=== PATIENT | male | born 1935 | race Caucasian/White ===

== ENCOUNTER 2016-09-30 08:37 | Inpatient (IN) | payer MEDICARE ==
[~2016-09-30] VITALS: Ht 180.3 cm; Wt 87.5 kg
[2016-09-30] VITALS (9 sets, daily range): BP systolic 92–149; BP diastolic 52–76; PULSE 59–64; RESP 14–18; TEMP 97.4–97.9; O2SAT 93–99
[~2016-09-30 08:37] MED LIST: ENAL10TA7 PO; HYDR-2768 PO; HYDR-3580 PO; K-TA10TA5 PO; OMEP20CA5 PO; SIMV20TA PO; WARF3TAB PO; WARF6 PO; Z.0.COMMODE-3:1; Z.0.WALKERFRONT
[2016-09-30] MEDS ORDERED: ENAL10TA PO ×2 (09:25)
[2016-09-30] MEDS ORDERED: POTA10CA PO (09:25)
[2016-09-30] MEDS ORDERED: OMEP20TA PO (09:25)
[2016-09-30] MEDS ORDERED: SIMV20TA PO (09:25)
[2016-09-30] MEDS ORDERED: WARF-60 PO (09:25)
[2016-09-30] MEDS ORDERED: HYDR25TA5 PO (09:25)
[2016-09-30] MEDS ORDERED: HYDR200T3 PO (09:26)
[2016-09-30] MEDS ORDERED: SODIUM CHLOR 0.9% 1000 ML INJ 1,000 ML IV SCH ×2 (09:30→11:50)
[2016-09-30] MEDS ORDERED: SODIUM CHLORIDE 0.9% FLUSH 10 ML FLUSH IV FLUSH PRN ×2 (09:30)
[2016-09-30] MEDS ORDERED: HEPARIN-NS/PF INJ 500 ML ONE (10:18)
[2016-09-30 10:21] LABS: INTERNATIONAL NORMALIZED RATIO 1.2 RATIO; PROTHROMBIN TIME - PATIENT 13.4 SEC (9.8-11.6)
[2016-09-30] MEDS ORDERED: MIDAZOLAM HCL 2 MG/2 ML VIAL ONE ×2 (10:21→11:30)
[2016-09-30] MEDS ORDERED: IOHEXOL 350 MG/ML 100 ML BTL (for Cath Lab) OTHER ONE (10:33)
[2016-09-30] MEDS ORDERED: IOHEXOL 350 MG/ML 50 ML BTL (for Cath Lab) OTHER ONE (10:33)
[2016-09-30] MEDS ORDERED: HEPARIN SODIUM - IV 10,000 UNITS/10 ML VIAL ONE (11:07)
[2016-09-30] MEDS ORDERED: CLOPIDOGREL 300 MG TAB ONE (11:52)
[2016-09-30] MEDS ORDERED: CLOP75TA PO (11:55)
--- NOTE | 2016-09-30 11:56 | CATHPROC ---
[facility] HIS Report Study Information Study Number Admission Scheduled Start Study Start [id number] Sep 30 2016 8:37AM 09/30/2016 Sep 30 2016 10:13AM [place] Service Cath Endovascular Study Admit Source Facility Department Other [facility] - [facility] Physician and Clinical Staff Initial Nirav Starr Business Associate Kirt Rowley RN Other cathlab, cathlab Recorder Quinn Vazquez RCIS(BS) Scrub Hosterman, Durga,RT(R) Procedures Performed Procedure Location (Site) Vessel Name Angiogram (manual) Fem L. Com (L7) Femoral Art Angiogram (manual) Fem R. Com (R7) Femoral Art Angiogram (manual) Iliac R. Com. (R4) [place] Art. Angiogram (manual) Popliteal L (L10) Popliteal Angiogram (manual) Popliteal R (R10) Popliteal Angiogram (manual) SFA (left) Femoral Art Angiogram (manual) SFA (right) Femoral Art Angiogram (manual) Tib, Ant. (left) Popliteal Angiogram (manual) Tib, Ant. (right) Popliteal Angiogram LV Abd Aorta (A3) Aorta DOCTOR OF MEDICINE SFA (right) Femoral Art DOCTOR OF MEDICINE Tib, Ant. (right) Popliteal Wire insertion Fem Art (right) Femoral Art Equipment Time Silicator Description Size Mfg Part Number Used/Scraped DBP- CARDIOVASCULAR CATHETER, STEALTH SOLID 11:26 [id number] Used SYSTEMS INC. 2.0MM *[id number] CARDIOVASCULAR [id number] 11:16 WIRE, FIRM (VIPER) 335 Used SYSTEMS INC. *[id number] WIRE, GUIDE APPROACH HYDRO [id number] 11:08 COOK/TATI 300CM Used ST *[id number] 532-523 10:28 CORDIS/ TATI RIM SUPER TORQUE CATHETER FR 5 Used *[id number] *[id number] BALLOON, ADMIRAL EXTREME 5 [id number] 11:33 [employer] 130CM Used X 40 130CM *[id number] BALLOON, ADMIRAL IN.PACT 6 X 11:36 [employer] 130CM [id number] Used 40 130CM BALLOON, AMPHIRION DEEP 4 X [id number] 11:23 [employer] 150CM Used 150 150CM *[id number] CATHETER, FR5 TRAILBLAZER [id number] 11:08 [employer] 135CM Used .035 *[id number] 10:28 MALLINCKRODT SYRINGE, ANGIOMAT 150ML 150ML [id number] Used [id number] 10:28 MEDLINE IND[employer]ES PACK, CCL CUSTOM * Used *[id number] 10:28 MEDLINE PACER PEN, SKIN DUAL W/ RULER * Used *[id number] 11:08 [employer] MEDICAL 30 RAFA INDEFLATOR Used *[id number] 11:45 [employer] SHEATH, FR6.5 PRELUDE 11CM FR 6.5 038ACT Used *[id number] [id number] 10:28 [employer] WIRE, EXCHANGE 260CM 3MMJ 260CM Used *[id number] 10:28 NAMIC MANIFOLD, 4 PORT * Used *[id number] [id number] 10:28 NAMIC TUBING, HIGH PRESSURE 48" 48" Used *[id number] 10:28 NYCOMED OMNIPAQUE, 300 MG, 150ML 150ML [id number] Used 11:01 NYCOMED OMNIPAQUE, 300 MG, 150ML 150ML [id number] Used [id number] 10:28 [facility] BLANKET,WARM AIR CCL * Used *[id number] 10:28 TERUMO MEDICAL SHEATH, FR5 TERUMO (10CM) FR 5 [id number] Used SHEATH, FR6 PINNACLE [id number] 11:08 TERUMO MEDICAL/TATI FR 6 Used DESTINATION 45CM *[id number] WIRE, ANGLE GLIDE STIFF .035 [id number] 10:28 TERUMO MEDICAL/TATI 260CM Used 260CM *[id number] Equipment Model, Serial, Lot Number and Expiration Data Description Model Number Serial Number Lot Number Expiration Date CATHETER, FR5 TRAILBLAZER .035 [id number] 07-19-2019 CATHETER, STEALTH SOLID 2.0MM [id number] 05-24-2018 WIRE, FIRM (VIPER) 335 [id number] 06-24-2018 WIRE, GUIDE APPROACH HYDRO [id number] 01-31-2019 ST History: Allergies Allergy Reaction Adhesives Rash Ciprofloxacin DRY MOUTH Oxycodone Confusion History: Other Current Smoker No Labs Hgb (g/dl) Hct (%) RBC (MIL/MM3) WBC (l/cumm) Platelets (thousands) 11.60-17.00 35.00-51.00 4.00-5.90 4.00-11.00 150.00-450.00 13.3 40.7 4.2 5.1 125 Glucose (mg/dl) BUN (mg/dl) Creatinine (mg/dl) BUN:Creatinine (1:x) 74.00-106.00 7.00-18.00 0.50-1.30 10.00-20.00 88 31 1.3 23.8 Na (meq/l) K (meq/l) Cl (meq/l) CO2 (mmol/L) Ca (mg/dl) 136.00-145.00 3.50-5.10 98.00-107.00 21.00-32.00 8.50-10.10 142 4.5 107 19 8.7 INR (PTT:PT) 0.90-1.10 1.2 CPK-MB (ng/ML) 0.50-3.60 Not Drawn Medication Medication Total Dose (Bolus/Oral) Medication Total Dosage/Unit 1% XYLOCAINE 20 mL FENTANYL 25 mcg HEPARIN 5000 units NTG (IC) 200 mcg PLAVIX 600 mg VERSED 2 mg Medications (Bolus/Oral) Medication Time Given Dosage/Unit Administered By Reason VERSED 09/30/2016 10:48:42 AM 1 mg Kirt Rowley Patient arrived on 1 mg VERSED given by Kirt Rowley RN in Left Antecubital via Peripheral IV. FENTANYL 09/30/2016 10:48:52 AM 25 mcg Kirt Rowley Patient arrived on 25 mcg FENTANYL given by Kirt Rowley RN in Left Antecubital via Peripheral IV. Ordered by Nirav Medrano. 1% XYLOCAINE 09/30/2016 10:53:49 AM 20 mL Nirav Medrano 20 mL 1% XYLOCAINE given in lab by Nirav Medrano in Left Groin via Subcutaneous. HEPARIN 09/30/2016 11:13:07 AM 5000 units Kirt Rowley 5000 units HEPARIN given in lab by Kirt Rowley RN in Left Antecubital via Peripheral IV. NTG (IC) 09/30/2016 11:30:46 AM 100 mcg Nirav Medrano 100 mcg NTG (IC) given in lab by Nirav Medrano in Left Groin via Intra-arterial. VERSED 09/30/2016 11:31:20 AM 1 mg Kirt Rowley Patient arrived on 1 mg VERSED given by Kirt Rowley, RN in Left Antecubital via Peripheral IV. NTG (IC) 09/30/2016 11:40:46 AM 100 mcg Nirav Medrano 100 mcg NTG (IC) given in lab by Nirav Medrano in Left Groin via Intra-arterial. PLAVIX 09/30/2016 11:56:02 AM 600 mg Kirt Rowley 600 mg PLAVIX given in lab by Kirt Rowley, RN via Oral. Medication (Drip) Medication Time Given Dosage/Unit Concentration/Unit Diluent (ml) Solutio n IV Solutions 09/30/2016 10:13:18 AM 0 mL (IV) 500 NaCl .9 Patient arrived on IV Solutions given by alyssa shah in Left Antecubital via Peripheral IV. Pump /Drip Flow = 20 ml/hr using NaCl .9. Ordered by Nirav Medrano. Initial Case Assessment Cardiovascular HR Rhythm NIBP Chest Pain 67 sinus 155/75 0 Edema Present Skin color Skin None Normal Warm Dry Circulatory - Right Pulses Dorsalis Pedis Femoral d 2 Scale (0,1,2,3,4,d) Circulatory - Left Pulses Dorsalis Pedis Femoral d 2 Scale (0,1,2,3,4,d) Neurological State Oriented to time-place- Alert Moves all extremities person Respiration - General Respiration Rate SpO2 (%) (B/min) 15 99 Final Case Assessment Cardiovascular HR Rhythm NIBP Chest Pain 60 sinus 123/71 0 Edema Present Skin color Skin None Normal Warm Dry Circulatory - Right Pulses Dorsalis Pedis Femoral d 2 Scale (0,1,2,3,4,d) Circulatory - Left Pulses Dorsalis Pedis Femoral d 2 Scale (0,1,2,3,4,d) Neurological State Oriented to time-place- Alert Moves all extremities person Respiration - General Respiration Rate SpO2 (%) (B/min) 15 98 Chronological Log Time Study Chronological Log 10:12:58 Patient arrived via Bed. 10:12:59 Patient Name, D.O.B, / Armband Verified By R.N. 10:13:00 Consent signed by the physician and the patient and verified by the [facility] staff. 10:13:00 Pre-op and post- op instructions given; patient acknowledges understanding of instructions. 10:13:01 Verbal Stimulation=2 Physical Stimulation=2 Airway=2 Respiration=2 TOTAL=8. (0=absent, 1=li mited, 2=present) 10:13:04 Presedation assessment performed by [facility] RN. 10:13:05 Immediate Presedation assesment performed by physician. 10:13:07 Patient has been NPO for More than 6Hrs. 10:13:08 Skin Breakdown- none per patient 10:13:14 Patient Warmer Placed on the Table. 10:13:16 Tegan Prominences Protected 10:13:17 A # 20 IV was noted in the Antecubital (left). Grade = 0 Patient arrived on IV Solutions given by cathlab, cathlab in Left Antecubital via Peripheral IV . Pump/Drip Flow = 20 10:13:18 ml/hr using NaCl .9. Ordered by Nirav Medrano. 10:13:18 History and physical on the chart or being dictated. Vitals capture started with the following parameters, Patient=Adult, Interval=5 min, Initial Pr soyvef=307 mmHg, 10:19:15 Deflation Rate=5 mmHg 10:19:53 FH=774 bpm, RZMQ=886/75 mmhg, SpO2=99.0 %, Resp=12 B/min Assessment: Initial Case, HR=67 BPM, Rhythm=sinus, STLS=971/75 mmhg, Chest Pain=0, Edema=None, Color=Normal, Skin = Warm, Dry Right Pulses: Clyde Ped=d, Femoral=2 10:22:32 Left Pulses: Clyde Ped=d, Femoral=2 Neurological: State=Alert, Ox3, [place] Respiration: Resp=15 B/min, SpO2=99 % 10:23:08 Reference ECG taken 10:24:54 HR=60 bpm, YKKX=417/76 mmhg, SpO2=99.0 %, Resp=13 B/min, Pain=0, Sonja=10, Duckworth=2 10:29:53 HR=60 bpm, VQXA=321/73 mmhg, SpO2=98.0 %, Resp=16 B/min, Pain=0, Sonja=10, Duckworth=2 10:30:19 Bilateral groins prepped with 2% chlorhexidine, and with a 3 min. waiting time. 10:34:50 FF=477 bpm, XKUD=804/73 mmhg, SpO2=98.0 %, Resp=18 B/min, Pain=0, Sonja=10, Duckworth=2 10:38:47 MD paged 10:39:10 MD responded 10:39:56 XN=681 bpm, WTUO=315/66 mmhg, SzK7=580.0 %, Resp=15 B/min, Pain=0, Sonja=10, Duckworth=2 10:41:46 Pressure channel 1 zeroed. 10:44:55 HR=60 bpm, SMMN=708/73 mmhg, SpO2=98.0 %, Resp=28 B/min 10:47:02 MD arrived. 10:48:06 Contrast Scanned 10:48:06 Immediate Presedation assesment performed by physician. 10:48:42 Patient arrived on 1 mg VERSED given by Kirt Rowley RN in Left Antecubital via Peripher al IV. Patient arrived on 25 mcg FENTANYL given by Kirt Rowley RN in Left Antecubital via Peripher al IV. Ordered by Mitchell, 10:48:52 Nirav. 10:49:54 HR=56 bpm, NPNN=889/68 mmhg, SpO2=99.0 %, Resp=18 B/min, Pain=0, Sonja=10, Duckworth=2 Time Out. Correct patient, correct procedure,correct physician, ,power injector loaded with con trast with surgical team 10:52:45 present. Time Out Concurred by , individual staff in procedure 10:53:22 Case Start 10:53:23 Verbal Stimulation=2 Physical Stimulation=2 Airway=2 Respiration=2 TOTAL=8. (0=absent, 1=li mited, 2=present) 10:53:49 20 mL 1% XYLOCAINE given in lab by Nirav Medrano in Left Groin via Subcutaneous. 10:54:51 HR=89 bpm, SDIF=097/72 mmhg, SpO2=94.0 %, Resp=13 B/min, Pain=0, Sonja=10, Duckworth=2 10:59:56 HR=59 bpm, GIYR=610/69 mmhg, SpO2=99.0 %, Resp=12 B/min, Pain=0, Sonja=10, Duckworth=2 11:00:24 Access site was Left Femoral Artery. 11:00:34 A SHEATH, FR5 TERUMO (10CM) FR 5 was advanced into the Fem Art (left) using the Percutaneou s technique. A PIGTAIL ANG. INFINITI CATHETER FR 5 was advanced over a wire. OMNIPAQUE, 300 MG, 150ML 150ML was used 11:01:16 for injections. 11:01:34 The Abd Aorta (A3) was injected at 12 cc/sec for a total of 24. OMNIPAQUE, 300 MG, 150ML 15 0ML used. After removing the current catheter a RIM SUPER TORQUE CATHETER FR 5 was advanced over a WIRE, EXCHANGE 11:04:32 260CM 3MMJ 260CM. 11:04:53 HR=59 bpm, NBGF=794/67 mmhg, SpO2=97.0 %, Resp=21 B/min, Pain=0, Sonja=10, Duckworth=2 11:05:28 Iliac R. Com. (R4) angiogram, manually injected. 11:06:38 Fem R. Com (R7) angiogram, manually injected. 11:06:50 SFA (right) angiogram, manually injected. 11:07:03 Popliteal R (R10) angiogram, manually injected. 11:08:53 Tib, Ant. (right) angiogram, manually injected. 11:09:56 HR=97 bpm, UKTF=903/56 mmhg, SpO2=97.0 %, Resp=15 B/min, Pain=0, Sonja=10, Duckworth=2 11:10:46 A WIRE, ANGLE GLIDE STIFF .035 260CM 260CM was inserted via Fem Art (right). 11:11:32 Catheter was removed w/o difficulty A SHEATH, FR6 PINNACLE DESTINATION 45CM FR 6 was exchanged in the Fem Art (left). This was nece ssary in order 11:11:44 to accomodate a larger catheter. 11:13:07 5000 units HEPARIN given in lab by Kirt Rowley, MORIAH in Left Antecubital via Peripheral IV . 11:14:51 HR=60 bpm, HEBQ=575/66 mmhg, SpO2=98.0 %, Resp=16 B/min, Pain=0, Sonja=10, Duckworth=2 A CATHETER, FR5 TRAILBLAZER .035 135CM was advanced over a wire. OMNIPAQUE, 300 MG, 150ML 150ML was 11:16:13 used for injections. 11:19:54 HR=60 bpm, FBOT=837/68 mmhg, SpO2=98.0 %, Resp=16 B/min, Pain=0, Sonja=10, Duckworth=2 11:21:09 Activated Clotting Time Drawn 11:23:37 Catheter was removed w/o difficulty A BALLOON, AMPHIRION DEEP 4 X 150 150CM 150CM was inserted over WIRE, GUIDE APPROACH HYDRO ST 3 00CM 11:23:39 via the Tib, Ant. (right). 11:24:21 In the Tib, Ant. (right) a BALLOON, AMPHIRION DEEP 4 X 150 150CM 150CM was inflated to 2 at ms for 60 seconds. 11:24:57 HR=68 bpm, AMNM=383/67 mmhg, SpO2=98.0 %, Resp=15 B/min, Pain=0, Sonja=10, Duckworth=2 11:25:35 The previous wire was exchanged for a WIRE, FIRM (MediastayER) 335. 11:26:31 ACT (Normal Range 90-180) = 225 11:27:49 An CATHETER, [employer] SOLID 2.0MM catheter was inserted into the SFA (right). 11:30:00 JN=234 bpm, JGWY=236/64 mmhg, SpO2=98.0 %, Resp=15 B/min, Pain=0, Sonja=10, Duckworth=2 11:30:[address] pass, 30 seconds, 90k rpm 11:30:46 100 mcg NTG (IC) given in lab by Nirav Medrano in Left Groin via Intra-arterial. 11:31:20 Patient arrived on 1 mg VERSED given by Kirt Rowley, RN in Left Antecubital via Peripher al IV. 11:31:22 2nd pass, 20 sec, 120k rpm 11:31:44 3rd pass, 20 sec, 120k rpm 11:32:22 Catheter was removed w/o difficulty 11:32:36 A BALLOON, ADMIRAL EXTREME 5 X 40 130CM 130CM was inserted over WIRE, FIRM (VIPER) 335 via the SFA (right). 11:33:21 In the SFA (right) a BALLOON, ADMIRAL EXTREME 5 X 40 130CM 130CM was inflated to 4 atms for 30 seconds. 11:34:05 In the SFA (right) a BALLOON, ADMIRAL EXTREME 5 X 40 130CM 130CM was inflated to 4 atms for 30 seconds. 11:34:55 HR=68 bpm, BZNM=027/73 mmhg, SpO2=97.0 %, Resp=30 B/min, Pain=0, Sonja=10, Duckworth=2 11:35:32 Balloon Removed. 11:36:18 A BALLOON, ADMIRAL IN.PACT 6 X 40 130CM 130CM was inserted over WIRE, FIRM (VIPER) 335 via the SFA (right). 11:37:01 In the SFA (right) a BALLOON, ADMIRAL IN.PACT 6 X 40 130CM 130CM was inflated to 4 atms for 180 seconds. 11:39:56 HR=60 bpm, AXMN=075/71 mmhg, SpO2=98.0 %, Resp=15 B/min, Pain=0, Sonja=10, Duckworth=2 11:40:16 Balloon Removed. 11:40:46 100 mcg NTG (IC) given in lab by Nirav Medrano in Left Groin via Intra-arterial. 11:42:00 Balloon Removed. 11:42:00 Wire removed 11:42:11 SFA (right) angiogram, manually injected. 11:42:15 Popliteal R (R10) angiogram, manually injected. 11:42:21 Tib, Ant. (right) angiogram, manually injected. 11:43:32 Fem L. Com (L7) angiogram, manually injected. 11:43:43 SFA (left) angiogram, manually injected. 11:43:48 Popliteal L (L10) angiogram, manually injected. 11:43:52 Tib, Ant. (left) angiogram, manually injected. A SHEATH, FR6.5 PRELUDE 11CM FR 6.5 was exchanged in the Fem Art (right). This was necessary i n order to 11:44:26 minimize site leakage. 11:44:59 HR=62 bpm, KAOV=147/71 mmhg, SpO2=98.0 %, Resp=16 B/min, Pain=0, Sonja=10, Duckworth=2 11:45:11 Case End Assessment: Final Case, HR=60 BPM, Rhythm=sinus, GLDC=635/71 mmhg, Chest Pain=0, Edema=None, Color=Normal, Skin = Warm, Dry Right Pulses: Clyde Ped=d, Femoral=2 11:45:15 Left Pulses: Clyde Ped=d, Femoral=2 Neurological: State=Alert, Ox3, [place] Respiration: Resp=15 B/min, SpO2=98 % 11:45:30 Catheter(s) removed without difficulty 11:45:32 In the Fem Art (left) the SHEATH, FR6.5 PRELUDE 11CM FR 6.[address] by Nirav Medrano. 11:45:41 Sterile dressing applied to site 11:45:42 No case complications noted. 11:45:43 Cine recording checked. 11:45:44 Holding Area notified of successful intervention. 11:45:45 Bedside Report will be given. 11:45:46 Implantable Device card placed in patient's chart. 11:45:48 Contrast Scanned 11:45:50 Verbal Stimulation=2 Physical Stimulation=2 Airway=2 Respiration=2 TOTAL=8. (0=absent, 1=l imited, 2=present) 11:49:56 HR=60 bpm, YMOF=165/70 mmhg, SpO2=98.0 %, Resp=14 B/min, Pain=0, Sonja=10, Duckworth=2 11:56:02 600 mg PLAVIX given in lab by Kirt Rowley, MORIAH via Oral. End Study - Contrast Media Used In Study Contrast Total Opened (mL) Total Used (mL) Total Wasted (mL) Omnipaque 150 150 0 End Study - Maximum Contrast Load Max Contrast Load (mL) 325.3 End Study - Radiation Exposure Fluoro Time (minutes) 10.3 End Study - Patient Disposition Complications Transferred To Interventional Outcome No [facility] successful
[2016-09-30] MEDS ORDERED: SODIUM CHLOR 0.9% 250 ML INJ 250 ML IV PRN (12:00)
[2016-09-30] MEDS ORDERED: ACETAMINOPHEN 325 MG TAB PO PRN (12:00)
[2016-09-30] MEDS ORDERED: BACITRACIN OINT 0.9 GM PKT TOP ONE (12:00)
[2016-09-30] MEDS ORDERED: ATROPINE SULFATE 1 MG/ML VIAL IV PRN (12:00)
[2016-09-30] MEDS ORDERED: ONDANSETRON HCL 4 MG/2 ML VIAL IV PRN (12:00)
[2016-09-30] MEDS ORDERED: cloNIDine HCL 0.1 MG TAB PO PRN (12:00)
[2016-09-30] MEDS ORDERED: LIDOCAINE HCL 1% 50 ML VIAL INFIL PRN (12:00)
[2016-09-30] MEDS ORDERED: METOCLOPRAMIDE HCL 10 MG/2 ML VIAL IV PRN (12:00)
[2016-09-30] MEDS ORDERED: MISC INFORMATION XX ONE (12:00)
[2016-09-30] MEDS ORDERED: LORazepam 2 MG/ML VIAL IV PRN (12:00)
[2016-09-30] MEDS ORDERED: hydrALAZINE HCL 20 MG/ML VIAL IV PUSH PRN (12:00)
[2016-09-30] MEDS ORDERED: TEMAZEPAM 15 MG CAP PO PRN (12:00)
--- NOTE | 2016-09-30 12:55 | MA ---
cc: SADIAIJEOMABRITTNI DATE: 09/30/2016 PROCEDURE PERFORMED 1. Fluoroscopy with interpretation. 2. Descending aortography. 3. Bilateral lower extremity peripheral angiography with first, second, third order visualization and interpretation. 4. Orbital rotational atherectomy and balloon angioplasty with drug-coated balloon in the left superficial femoral artery. 5. Orbital rotational atherectomy and balloon angioplasty with drug-coated balloon of the right superficial femoral artery. 6. Percutaneous transluminal angioplasty of the right anterior tibial artery. METHOD The risks, benefits and alternatives were discussed with the patient. The patient understood and consented to the procedure. The patient was brought into the catheterization lab and placed on the catheterization table. The left groin was prepped and draped in the usual sterile fashion. The left groin was anesthetized with 2% lidocaine. The left common femoral artery was cannulated. A 5-Macedonian, 11 cm sheath was placed without difficulty. DESCENDING AORTOGRAPHY Descending aortography is performed in an anteroposterior view using a 24 cc contrast injection with good opacification. Descending aortography revealed mild infrarenal descending aortic atherosclerosis. Bilateral renal arteries are widely patent with mild calcium present. PERIPHERAL ANGIOGRAPHY 1. 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 The right internal iliac artery has mild calcium present. The right external iliac artery has minor luminal irregularities. The right common femoral artery although calcified has only minor luminal irregularities. The right superficial femoral artery has a 95% stenosis in the mid to distal segment. The profunda artery is widely patent. The popliteal artery is widely patent. The posterior tibial and peroneal vessels are occluded. The anterior tibial has 80% diffuse stenosis in the proximal segment, 80% tubular stenosis distal by the ankle. The dorsalis pedis is patent at the level of the foot. The posterior tibial is not well-visualized. 2. 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 The left external and internal iliac arteries have minor luminal irregularities. The left common femoral has mild to moderate calcific disease. The left profunda artery is widely patent. The left superficial femoral has mild to moderate diffuse disease through its midsegment. There appears to be a 70% stenosis in the mid to distal segment. The left popliteal artery is widely patent. The anterior tibial is occluded but has some collateralization in the proximal segment. The posterior tibial peroneal trunk has an 80% stenosis. The peroneal vessel is patent. The posterior tibial is collateralized distally. PERIPHERAL INTERVENTION A 5-Macedonian catheter is selectively engaged in the right common iliac artery. A 0.035 inch, 260 cm Stiff angle Glidewire is navigated up-and-over the arch into the right superficial femoral artery. A 6-Macedonian, 45 cm Terumo Destination [place] sheath was advanced up-and-over the arch. A 0.014 inch, [address] wire was navigated carefully down to the distal anterior tibial vessel. A 4.0 x 100 mm Medtronic balloon was then deployed gently in the right anterior tibial vessel to 4 atmospheres. Repeat angiography showed no residual stenosis in the proximal segment. The wire was exchanged for a 0.014 inch, 335 cm Askablogrer wire. A 2.0 mm CSI atherectomy catheter was then prepped. Orbital rotational atherectomy was performed on three sequential passes through the right superficial femoral artery midsegment. A 5.0 x 40 mm Medtronic balloon was then predilated in the midsegment of the right superficial femoral artery. A 6.0 x 40 mm drug-coated balloon was then deployed for prolonged inflation in the mid right superficial femoral artery. Repeat angiography showed no residual stenosis, JH-III flow. CONCLUSIONS 1. Severe left superficial femoral stenosis. 2. Chronically occluded bilateral posterior tibial arteries. 3. Chronically occluded left peroneal and left anterior tibial arteries. 4. Severe posterior tibial-peroneal trunk stenosis. 5. Moderate to severe right superficial femoral artery mid stenosis. 6. Successful orbital rotational atherectomy and balloon angioplasty with drug-coated balloon of the right mid superficial femoral artery. 7. Moderate to severe stenosis of the left mid superficial femoral artery. 8. Successful balloon angioplasty of the right anterior tibial vessel. PLAN Will see how this translates to symptomatic improvement. The patient does have at least moderate to severe left superficial femoral artery and severe infrapopliteal disease on the left. We may consider staged intervention if he has significant improvement with the right side. We will resume his Coumadin therapy. MD JULITO Lomeli/MIRANDA /12:03 PM /12:41 PM
[2016-09-30] MEDS: MORPHINE SULFATE 4 MG/ML INJ IV PUSH PRN (15:09)
[2016-10-01] VITALS (21 sets, daily range): BP systolic 69–169; BP diastolic 38–68; PULSE 58–76; RESP 18–20; TEMP 98–98.2; O2SAT 95–98
[2016-10-01] MEDS: MORPHINE SULFATE 4 MG/ML INJ IV PUSH PRN (01:55)
[2016-10-01 03:26] LABS: AUTOMATED NEUTROPHIL # 6.9 TH/MM3 (1.8-7.7); BASOPHIL % 0.3 % (0.0-2.0); EOSINOPHIL % 0.1 % (0.0-4.0); HEMATOCRIT 29.6 % (39.0-51.0); HEMO FLAGS DIFF FINAL; LYMPHOCYTE # 0.9 TH/MM3 (1.0-4.8); MEAN CELL VOLUME 94.8 FL (80.0-100.0); MEAN CORPUSCULAR HEMOGLOBIN 32.4 PG (27.0-34.0); MEAN CORPUSCULAR HGB CONC 34.1 % (32.0-36.0); MONO % 6.3 % (0.0-8.0); NEUT % 82.3 % (16.0-70.0); PLATELET COUNT 132 TH/MM3 (150-450); RED BLOOD COUNT 3.13 MIL/MM3 (4.50-5.90); RED CELL DISTRIBUTION WIDTH 13.2 % (11.6-17.2); WHITE BLOOD COUNT 8.4 TH/MM3 (4.0-11.0)
[2016-10-01] MEDS ORDERED: PHENYLEPHRINE 40 MG/D5W 496 ML ADMIX IV SCH ×2 (03:30)
[2016-10-01] MEDS ORDERED: TERBUTALINE INJ 1 MG/ML AMP SQ PRN (03:30)
[2016-10-01] MEDS ORDERED: EPINEPHrine HCL (1:10,000) 1 MG/10 ML SYRINGE ONE (03:33)
[2016-10-01] MEDS ORDERED: ATROPINE SULFATE 1 MG/10 ML SYRINGE ONE (03:33)
[2016-10-01] MEDS ORDERED: MAGNESIUM HYDROXIDE SUSP 30 ML CUP PO PRN ×2 (04:30→19:15)
[2016-10-01] MEDS ORDERED: MORPHINE SULFATE 8 MG/ML INJ IV PUSH PRN (04:30)
[2016-10-01] MEDS ORDERED: ACETAMINOPHEN 325 MG TAB PO PRN ×2 (04:30→19:15)
[2016-10-01] MEDS ORDERED: SENNOSIDES 8.6 MG TAB PO PRN (04:30)
[2016-10-01] MEDS ORDERED: CHLORHEXIDINE GLUCONATE 2 % 1 PACK (2 CLOTHS) TOP PRN (04:30)
[2016-10-01] MEDS ORDERED: LACTULOSE SYRUP 20 GM/30 ML CUP PO PRN (04:30)
[2016-10-01] MEDS ORDERED: ONDANSETRON HCL 4 MG/2 ML VIAL IV PRN (04:30)
[2016-10-01] MEDS ORDERED: MISCELLANEOUS NURSING INFORMATION XX SCH (04:30)
[2016-10-01] MEDS ORDERED: BISACODYL 10 MG SUPP RECTAL PRN (04:30)
--- NOTE | 2016-10-01 04:42 | RADRPT ---
EXAM DATE/TIME: 10/01/2016 03:41 [place] COMPARISON: No previous studies available for comparison. INDICATIONS : Left lower quadrant pain. Evaluate for retroperitoneal bleed. Angioplasty done earlier today. ORAL CONTRAST: No oral contrast ingested. RADIATION DOSE: 10.29 CTDIvol (mGy) MEDICAL HISTORY : Gastroesophageal reflux disease. Hypertension. SURGICAL HISTORY : Pacemaker. Inguinal hernia repair.Right and left hip surgery. ENCOUNTER: Initial ACUITY: 1 day PAIN SCALE: 9/10 LOCATION: Left lower quadrant TECHNIQUE: Volumetric scanning of the abdomen and pelvis was performed. Using automated exposure control and ad justment of the mA and/or kV according to patient size, radiation dose was kept as low as reasonably achievable to obtain optimal diagnostic quality images. DICOM format image data is available electro nically for review and comparison. FINDINGS: LOWER LUNGS: Bibasilar atelectatic changes. LIVER: Homogeneous density without lesion. There is no dilation of the biliary tree. No calcified gallston es. SPLEEN: Normal size without lesion. PANCREAS: Within normal limits. KIDNEYS: Bilateral renal cortical cysts, the largest on the left measuring 9 cm in diameter. The left kidney i s displaced slightly anteriorly due to the retroperitoneal hemorrhage. ADRENAL GLANDS: Within normal limits. VASCULAR: There is no aortic aneurysm. BOWEL/MESENTERY: The stomach, small bowel, and colon demonstrate no acute abnormality. There is no free intraperitone al air or fluid. ABDOMINAL WALL: Within normal limits. RETROPERITONEUM: As suspected clinically, there is a large left-sided retroperitoneal hemorrhage measuring 7.7 x 8.1 x 13.9 cm. BLADDER: No wall thickening or mass. REPRODUCTIVE: Within normal limits. INGUINAL: There is no lymphadenopathy or hernia. MUSCULOSKELETAL: Degenerative spurring of the thoracolumbar spine. Bilateral total hip arthroplasties. CONCLUSION: 1. Large left-sided retroperitoneal hemorrhage measuring 7.7 x 8.1 x 13.9 cm in diameter. This extend s into the left retroperitoneal space and slightly displaces the left kidney anteriorly. 2. Bilateral renal cortical cysts, the largest on the left measuring 9 cm in diameter. Demetrius Okeefe MD on October 01, 2016 at 4:32 Board Certified Radiologist. This report was verified electronically.
[2016-10-01 06:00] LABS: ANION GAP 7 MEQ/L (5-15); AST (GOT) 12 U/L (15-37); BICARBONATE 23.1 MEQ/L (21.0-32.0); BLOOD UREA NITROGEN 31 MG/DL (7-18); CHLORIDE 113 MEQ/L (98-107); GLOMERULAR FILTRATION RATE 45 ML/MIN (>89); POTASSIUM 5.3 MEQ/L (3.5-5.1); SODIUM (NA) 143 MEQ/L (136-145)
[2016-10-01 06:01] LABS: ALT (GPT) 13 U/L (12-78)
[2016-10-01 06:03] LABS: ALKALINE PHOSPHATASE 64 U/L (45-117); APTT (PATIENT) 27.3 SEC (24.3-30.1); INTERNATIONAL NORMALIZED RATIO 1.2 RATIO; PROTHROMBIN TIME - PATIENT 13.1 SEC (9.8-11.6); TOTAL BILIRUBIN ADULT 0.8 MG/DL (0.2-1.0)
--- NOTE | 2016-10-01 06:04 | PD.CONS ---
[facility] Service Critical Care Medicine Consult Requested By Cardiology Service Reason for Consult Hypovolemic Shock Primary Care Physician Matthew Flores M.D. History of Present Illness 81 y/o man s/p extensive lower extremity peripheral vascular procedures developed worsening hypotension requiring crystalloid bolus infusion and red cell transfusion. Complains of left lower quadrant pain and back pain. Left groin is not swollen. No chest pain or SOB. Review of Systems Eyes: DENIES: Blurred vision, Diplopia, Eye inflammation, Eye pain, Vision loss , Photosensitivity, Double Vision Cardiovascular: DENIES: Chest pain, Palpitations, Syncope, Dyspnea on Exertion , PND, Lower Extremity Edema, Orthopnea, Claudication Genitourinary: DENIES: Sexual dysfunction, Urinary frequency, Urinary incontinence, Urgency, Hematuria, Dysuria, Nocturia, Penile Discharge, Testicular Pain, Testicular Swelling Musculoskeletal: DENIES: Joint pain, Muscle aches, Stiffness, Joint Swelling, Back pain, Neck pain Hematologic/lymphatic: DENIES: Bruising, Lymphadenopathy Immunologic/allergic: DENIES: Eczema, Urticaria Neurologic: DENIES: Abnormal gait, Headache, Localized weakness, Paresthesias, Seizures, Speech Problems, Tremor, Poor Balance Psychiatric: DENIES: Anxiety, Confusion, Mood changes, Depression, Hallucinations, Agitation, Suicidal Ideation, Homicidal Ideation, Delusions Past Family Social History Allergies: Coded Allergies: Adhesives (Verified Adverse Reaction, Severe, Rash, 12/15/14) Ciprofloxacin (Verified Adverse Reaction, Severe, DRY MOUTH, 12/15/14) Oxycodone (Verified Adverse Reaction, Intermediate, Confusion, 12/15/14) Physical Exam Vital Signs Vital Signs Date Time Temp Pulse Resp B/P Pulse Ox O2 Delivery O2 Flow Rate FiO2 10/01/16 03:27 94/51 10/01/16 03:14 58 10/01/16 03:05 69/40 10/01/16 03:00 69/51 10/01/16 03:00 68 10/01/16 02:37 69/38 10/01/16 02:34 79/43 10/01/16 02:30 80/44 10/01/16 02:00 64 10/01/16 01:00 60 10/01/16 00:00 66 09/30/16 23:00 97.9 61 14 92/52 97 09/30/16 23:00 62 09/30/16 22:00 64 09/30/16 21:00 60 09/30/16 20:23 60 14 135/70 99 09/30/16 20:00 60 09/30/16 18:00 60 09/30/16 17:00 60 09/30/16 16:28 97.4 63 18 149/76 99 09/30/16 16:28 60 09/30/16 12:52 99 Room Air 09/30/16 09:27 97.6 59 17 144/66 93 Physical Exam P 68, BP 72/48, R 14 nonlabored, Sats 93% NC Head: Normal. Neck: Supple, airway widely patent. Lungs: Clear, no wheezes or crackles. Heart: Irreg Irreg, paced ventricular beats on monitor. No JVD. Abdomen: Fullness LLQ with tenderness to palpation. No peritoneal irritation. BS quiet. Extremities: Lowers tepid, adequately perfused. Neuro: O X 3, anxious. Laboratory Laboratory Tests Test 09/30/16 09/30/16 10/01/16 10/01/16 09:15 10:00 03:19 03:25 Blood Type A POSITIVE A POSITIVE Antibody Screen NEGATIVE Prothrombin Time 13.4 Prothromb Time International 1.2 Ratio White Blood Count 8.4 Red Blood Count 3.13 Hemoglobin 10.1 Hematocrit 29.6 Mean Corpuscular Volume 94.8 Mean Corpuscular Hemoglobin 32.4 Mean Corpuscular Hemoglobin 34.1 Concent Red Cell Distribution Width 13.2 Platelet Count 132 Mean Platelet Volume 7.3 Neutrophils (%) (Auto) 82.3 Lymphocytes (%) (Auto) 11.0 Monocytes (%) (Auto) 6.3 Eosinophils (%) (Auto) 0.1 Basophils (%) (Auto) 0.3 Neutrophils # (Auto) 6.9 Lymphocytes # (Auto) 0.9 Monocytes # (Auto) 0.5 Eosinophils # (Auto) 0.0 Basophils # (Auto) 0.0 CBC Comment DIFF FINAL Differential Comment Crossmatch Leukocyte-Reduced Red Blood Cells Blood Bank Comment Result Diagram: 10/01/16 0319 Assessment and Plan Assessment and Plan Assessment: 1. S/P peripheral vascular intervention lower extremities. 2. Hypovolemic Shock. Plan: 1. Limit saline hydration. 2. Tx PRBCs now. 3. Bed rest. 4. Try to avoid vasopressors. 5. Coag profile, fibrinogen Overall impression: Significant blood loss in patient with retroperitoneal hemorrhage. Critically ill and very concerning in the context of severe peripheral arterial disease. Critical care 38 mins Shahid Christianson MD Oct 01, 2016 06:04
[2016-10-01 06:55] LABS: HEMATOCRIT 32.6 % (39.0-51.0)
[2016-10-01 07:05] LABS: REVIEW FLAG FINAL
[2016-10-01] MEDS ORDERED: CLOPIDOGREL 75 MG TAB PO SCH (09:00)
[2016-10-01] MEDS: PANTOPRAZOLE SODIUM 40 MG VIAL IV SCH (09:09)
[2016-10-01] MEDS: ASPIRIN 81 MG CHEW TAB PO SCH (09:10)
[2016-10-01] MEDS: DOCUSATE SODIUM 50 MG/SENNA 8.6 MG TAB PO SCH ×2 (09:10→21:20)
--- NOTE | 2016-10-01 09:36 | PD.CARD.PN ---
Subjective Subjective Remarks Events of last night noted; pt says he is feeling much better, w/ the severe back pain resolved (and not getting any pain meds); left groin/LLQ mildly tender Objective Medications Administered Medications Medications (Trade) Dose Ordered Sig/Arlyn Route PRN Reason Start Time Stop Time Status Last Admin Dose Admin Morphine Sulfate (Morphine Inj) 2 mg Q30M PRN IV PUSH BREAKTHROUGH PAIN 09/30/16 12:00 10/01/16 01:55 Aspirin (Aspirin Chew) 81 mg DAILY PO 10/01/16 09:00 10/01/16 09:10 Clopidogrel Bisulfate (Plavix) 75 mg DAILY PO 10/01/16 09:00 10/01/16 09:10 Pantoprazole Sodium (Protonix Inj) 40 mg DAILY IV 10/01/16 09:00 10/01/16 09:09 Senna/Docusate Sodium (Christelle-Colace) 1 tab BID PO 10/01/16 09:00 10/01/16 09:10 Vital Signs / I&O Vital Signs Date Time Temp Pulse Resp B/P Pulse Ox O2 Delivery O2 Flow Rate FiO2 10/01/16 07:00 98.0 71 18 102/57 95 10/01/16 06:00 98.1 61 20 92/49 97 10/01/16 06:00 60 18 103/49 97 10/01/16 05:00 61 20 92/49 97 10/01/16 04:20 64 10/01/16 04:00 64 20 110/58 98 Manual Cuff/Auscultation 10/01/16 03:27 94/51 10/01/16 03:14 58 10/01/16 03:05 69/40 10/01/16 03:00 69/51 10/01/16 03:00 68 10/01/16 02:37 69/38 10/01/16 02:34 79/43 10/01/16 02:30 80/44 10/01/16 02:00 64 10/01/16 01:00 60 10/01/16 00:00 66 09/30/16 23:00 97.9 61 14 92/52 97 09/30/16 23:00 62 09/30/16 22:00 64 09/30/16 21:00 60 09/30/16 20:23 60 14 135/70 99 09/30/16 20:00 60 09/30/16 18:00 60 09/30/16 17:00 60 09/30/16 16:28 97.4 63 18 149/76 99 09/30/16 16:28 60 09/30/16 12:52 99 Room Air 09/30/16 09:27 97.6 59 17 144/66 93 I/O 09/30/16 09/30/16 09/30/16 10/01/16 10/01/16 10/01/16 07:00 15:00 23:00 07:00 15:00 23:00 Intake Total 240 ml 1665 ml Output Total 250 ml 900 ml Balance -10 ml 765 ml Intake Oral 240 ml 0 ml IV Total 1415 ml Packed Cells 250 ml Output Urine Total 250 ml 900 ml # Bowel Movements 0 Physical Exam GENERAL: This is a well-nourished, well-developed patient, in no apparent distress. CARDIOVASCULAR: Regular rate and irregular rhythm without murmurs, gallops, or rubs. RESPIRATORY: Clear to auscultation. Breath sounds equal bilaterally. No wheezes , rales, or rhonchi. GASTROINTESTINAL: LLQ mildly tense and tender (pt says much improved) MUSCULOSKELETAL: Extremities without clubbing, cyanosis, or edema. NEURO: Alert & Oriented x4 to person, place, time, situation. Moves all ext x4 Left groin: soft, mildly tender Laboratory Laboratory Tests Test 09/30/16 10/01/16 10/01/16 10/01/16 10:00 03:19 03:25 05:22 Prothrombin Time 13.4 SEC 13.1 SEC Prothromb Time International 1.2 RATIO 1.2 RATIO Ratio White Blood Count 8.4 TH/MM3 Red Blood Count 3.13 MIL/MM3 Hemoglobin 10.1 GM/DL Hematocrit 29.6 % Mean Corpuscular Volume 94.8 FL Mean Corpuscular Hemoglobin 32.4 PG Mean Corpuscular Hemoglobin 34.1 % Concent Red Cell Distribution Width 13.2 % Platelet Count 132 TH/MM3 Mean Platelet Volume 7.3 FL Neutrophils (%) (Auto) 82.3 % Lymphocytes (%) (Auto) 11.0 % Monocytes (%) (Auto) 6.3 % Eosinophils (%) (Auto) 0.1 % Basophils (%) (Auto) 0.3 % Neutrophils # (Auto) 6.9 TH/MM3 Lymphocytes # (Auto) 0.9 TH/MM3 Monocytes # (Auto) 0.5 TH/MM3 Eosinophils # (Auto) 0.0 TH/MM3 Basophils # (Auto) 0.0 TH/MM3 CBC Comment DIFF FINAL Differential Comment Blood Type A POSITIVE Crossmatch Leukocyte-Reduced Red Blood Cells Blood Bank Comment Activated Partial 27.3 SEC Thromboplast Time Fibrinogen 284 mg/dL Sodium Level 143 MEQ/L Potassium Level 5.3 MEQ/L Chloride Level 113 MEQ/L Carbon Dioxide Level 23.1 MEQ/L Anion Gap 7 MEQ/L Blood Urea Nitrogen 31 MG/DL Creatinine 1.49 MG/DL Estimat Glomerular Filtration 45 ML/MIN Rate Random Glucose 123 MG/DL Calcium Level 7.6 MG/DL Total Bilirubin 0.8 MG/DL Aspartate Amino Transf 12 U/L (AST/SGOT) Alanine Aminotransferase 13 U/L (ALT/SGPT) Alkaline Phosphatase 64 U/L Total Protein 5.0 GM/DL Albumin 2.7 GM/DL Test 10/01/16 06:30 Hemoglobin 10.8 GM/DL Hematocrit 32.6 % Imaging Last Impressions Abdomen/Pelvis CT 10/01/16 0000 Signed Impressions: Service Date/Time: Saturday, October 01, 2016 03:41 - CONCLUSION: 1. Large left-sided retroperitoneal hemorrhage measuring 7.7 x 8.1 x 13.9 cm in diameter. This extends into the left retroperitoneal space and slightly displaces the left kidney anteriorly. 2. Bilateral renal cortical cysts, the largest on the left measuring 9 cm in diameter. Demetrius Okeefe MD Assessment and Plan Problem List: (1) Retroperitoneal bleeding Assessment and Plan: Currently sable, pain resolved BP stable, continue careful observation in ICU (2) Atrial fibrillation Assessment and Plan: holding warfarin, good rates. Josue Hernández MD Oct 01, 2016 09:36
[2016-10-01] MEDS: SODIUM CHLOR 0.9% 1000 ML INJ 1,000 ML IV SCH ×3 (10:00→21:19)
[2016-10-01 11:19] LABS: HEMATOCRIT 33.2 % (39.0-51.0); REVIEW FLAG FINAL
[2016-10-01] MEDS ORDERED: PROPOFOL 200 MG/20 ML AMP IV ONE (12:00)
[2016-10-01] MEDS ORDERED: PHENYLEPH/NS 1000 MCG/10 ML SYR IV ONE (12:00)
[2016-10-01] MEDS ORDERED: NEOSTIGMINE 3 MG/3 ML SYR IV ONE (12:00)
[2016-10-01] MEDS ORDERED: ONDANSETRON HCL 4 MG/2 ML VIAL IV PUSH ONE (12:00)
[2016-10-01] MEDS ORDERED: LACTATED RINGER'S 1000 ML INJ 1,000 ML IV ONE (12:00)
[2016-10-01 13:31] LABS: HEMATOCRIT 31.2 % (39.0-51.0); REVIEW FLAG FINAL
--- NOTE | 2016-10-01 14:20 | PD.CARD.PN ---
Subjective Subjective Remarks events from last night noted. Was notified by Dr. Hernández of the retroperitoneal bleed this am. 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 Denies any abdominal pain. Objective Medications Active Medications Acetaminophen (Tylenol) 650 mg Q6H PRN PO; Start 10/01/16 at 04:30 Aspirin (Aspirin Chew) 81 mg DAILY PO Last administered on 10/01/16 09:10; Admin Dose 81 MG; Start 10/01/16 at 09:00 Atropine Sulfate (Atropine Inj) 1 mg STK-MED ONCE .ROUTE; Start 10/01/16 at 03:33 ; Stop 10/01/16 at 03:34; Status DC Bisacodyl (Dulcolax Supp) 10 mg DAILY PRN RECTAL; Start 10/01/16 at 04:30 Chlorhexidine Gluconate (Chlorhexidine 2% Cloth) 3 pack UNSCH PRN TOP; Start at 04:30 Chlorhexidine Gluconate (Chlorhexidine 2% Cloth) 3 pack Taper DAILY@04 TOP; Start 10/02/16 at 04:00; Stop 09/28/17 at 03:59 Clopidogrel Bisulfate 75 mg 75 mg DAILY PO Last administered on 10/01/16 09:10; Admin Dose 75 MG; Start 10/01/16 at 09:00 Epinephrine HCl (EPINEPHrine (1:10,000) INJ) 1 mg STK-MED ONCE .ROUTE; Start 10/01/16 at 03:33; Stop 10/01/16 at 03:34; Status DC Lactulose 30 ml 30 ml DAILY PRN PO; Start 10/01/16 at 04:30 Magnesium Hydroxide (Milk Of Magnesia Liq) 30 ml Q12H PRN PO; Start 10/01/16 at 04:30 Miscellaneous Information 1 Q361D XX; Start 10/01/16 at 04:30 Morphine Sulfate (Morphine Inj) 2 mg Q2H PRN IV PUSH; Start 10/01/16 at 04:30 Ondansetron HCl (Zofran Inj) 4 mg Q6H PRN IV; Start 10/01/16 at 04:30 Pantoprazole Sodium (Protonix Inj) 40 mg DAILY IV Last administered on 10/01/16 09:09; Admin Dose 40 MG; Start 10/01/16 at 09:00 Phenylephrine HCl/ Dextrose (Neosynephrine Inj/D5W 500 ml Inj) 500 ml @ 0 mls/ hr TITRATE IV; Start 10/01/16 at 03:30 Senna/Docusate Sodium (Christelle-Colace) 1 tab BID PO Last administered on 10/01/16 09:10; Admin Dose 1 TAB; Start 10/01/16 at 09:00 Sennosides (Senokot) 17.2 mg Q12H PRN PO; Start 10/01/16 at 04:30 Sodium Chloride (NS 1000 ml Inj) 1,000 ml @ 30 mls/hr Q24H IV Last administered on 10/01/16 10:00; Admin Dose 30 MLS/HR; Start 10/01/16 at 10:00 Terbutaline Sulfate (Brethine Inj) 1 mg UNSCH PRN SQ; Start 10/01/16 at 03:30 Vital Signs / I&O Vital Signs Date Time Temp Pulse Resp B/P Pulse Ox O2 Delivery O2 Flow Rate FiO2 10/01/16 11:18 95 21 10/01/16 11:00 58 10/01/16 11:00 98.1 58 18 101/64 95 10/01/16 07:00 98.0 71 18 102/57 95 10/01/16 07:00 71 10/01/16 06:00 98.1 61 20 92/49 97 10/01/16 06:00 60 18 103/49 97 10/01/16 05:00 61 20 92/49 97 10/01/16 04:20 64 10/01/16 04:00 64 20 110/58 98 Manual Cuff/Auscultation 10/01/16 03:27 94/51 10/01/16 03:14 58 10/01/16 03:05 69/40 10/01/16 03:00 69/51 10/01/16 03:00 68 10/01/16 02:37 69/38 10/01/16 02:34 79/43 10/01/16 02:30 80/44 10/01/16 02:00 64 10/01/16 01:00 60 10/01/16 00:00 66 09/30/16 23:00 97.9 61 14 92/52 97 09/30/16 23:00 62 09/30/16 22:00 64 09/30/16 21:00 60 09/30/16 20:23 60 14 135/70 99 09/30/16 20:00 60 09/30/16 18:00 60 09/30/16 17:00 60 09/30/16 16:28 97.4 63 18 149/76 99 09/30/16 16:28 60 I/O 09/30/16 09/30/16 09/30/16 10/01/16 10/01/16 10/01/16 06:59 14:59 22:59 06:59 14:59 22:59 Intake Total 240 ml 1665 ml Output Total 250 ml 900 ml Balance -10 ml 765 ml Intake Oral 240 ml 0 ml IV Total 1415 ml Packed Cells 250 ml Output Urine Total 250 ml 900 ml # Bowel Movements 0 Physical Exam EYES: No scleral icterus. No injection or drainage. NECK: Supple, trachea midline. No JVD or lymphadenopathy. CARDIOVASCULAR: Regular rate and rhythm without murmurs, gallops, or rubs. RESPIRATORY: Breath sounds equal bilaterally. No accessory muscle use. GASTROINTESTINAL: Abdomen soft, minimal tenderness with deep palpation, nondistended. MUSCULOSKELETAL: No cyanosis, or edema. BACK: Nontender without obvious deformity. No CVA tenderness. Laboratory Laboratory Tests Test 10/01/16 10/01/16 10/01/16 10/01/16 03:19 03:25 05:22 06:30 White Blood Count 8.4 TH/MM3 Red Blood Count 3.13 MIL/MM3 Hemoglobin 10.1 GM/DL 10.8 GM/DL Hematocrit 29.6 % 32.6 % Mean Corpuscular Volume 94.8 FL Mean Corpuscular Hemoglobin 32.4 PG Mean Corpuscular Hemoglobin 34.1 % Concent Red Cell Distribution Width 13.2 % Platelet Count 132 TH/MM3 Mean Platelet Volume 7.3 FL Neutrophils (%) (Auto) 82.3 % Lymphocytes (%) (Auto) 11.0 % Monocytes (%) (Auto) 6.3 % Eosinophils (%) (Auto) 0.1 % Basophils (%) (Auto) 0.3 % Neutrophils # (Auto) 6.9 TH/MM3 Lymphocytes # (Auto) 0.9 TH/MM3 Monocytes # (Auto) 0.5 TH/MM3 Eosinophils # (Auto) 0.0 TH/MM3 Basophils # (Auto) 0.0 TH/MM3 CBC Comment DIFF FINAL Differential Comment Blood Type A POSITIVE Crossmatch Leukocyte-Reduced Red Blood Cells Blood Bank Comment Prothrombin Time 13.1 SEC Prothromb Time International 1.2 RATIO Ratio Activated Partial 27.3 SEC Thromboplast Time Fibrinogen 284 mg/dL Sodium Level 143 MEQ/L Potassium Level 5.3 MEQ/L Chloride Level 113 MEQ/L Carbon Dioxide Level 23.1 MEQ/L Anion Gap 7 MEQ/L Blood Urea Nitrogen 31 MG/DL Creatinine 1.49 MG/DL Estimat Glomerular Filtration 45 ML/MIN Rate Random Glucose 123 MG/DL Calcium Level 7.6 MG/DL Total Bilirubin 0.8 MG/DL Aspartate Amino Transf 12 U/L (AST/SGOT) Alanine Aminotransferase 13 U/L (ALT/SGPT) Alkaline Phosphatase 64 U/L Total Protein 5.0 GM/DL Albumin 2.7 GM/DL Test 10/01/16 10/01/16 10:00 13:20 Hemoglobin 11.3 GM/DL 10.5 GM/DL Hematocrit 33.2 % 31.2 % Imaging Last Impressions Abdomen/Pelvis CT 10/01/16 0000 Signed Impressions: Service Date/Time: Saturday, October 01, 2016 03:41 - CONCLUSION: 1. Large left-sided retroperitoneal hemorrhage measuring 7.7 x 8.1 x 13.9 cm in diameter. This extends into the left retroperitoneal space and slightly displaces the left kidney anteriorly. 2. Bilateral renal cortical cysts, the largest on the left measuring 9 cm in diameter. Demetrius Okeefe MD Assessment and Plan Problem List: (1) Retroperitoneal bleeding (2) Atrial fibrillation Assessment and Plan PAD - s/p rotational atherectomy and drug coated balloon angioplasty of the right SFA and [employer] of right AT. extremity warm. 1+ pulse RLE Retroperitoneal bleed - s/p manual hemostasis without report of complication or local hematoma. patient denies any significant precipitating event (sneeze, moving, ect). Large retroperitoneal bleed with displacement of kidney on noncontrast CT. clinically stablized. SBP and HR stable. minimal LLQ discomfort. STAT CTA WITH CONTRAST of abdomen and pelvis to rule out residual pseudoaneurysm or signs of continued extravasation. Consult vascular surgery. Discussed case with Dr. Shields vascular surgeon who is coming in to the patient rupal. no stent placed. hold plavix. continue aspirin for now. CRI Cr 1.5. hydration. aaron catheter. echo 2014 EF 55% without significant valvular heart disease. Nirav Medrano MD Oct 01, 2016 14:19
[2016-10-01] MEDS ORDERED: IOHEXOL 350 MG/ML 10 ML VIAL (for RAD DIAG) IV ONE (15:24)
--- NOTE | 2016-10-01 15:37 | RADRPT ---
EXAM DATE/TIME: 10/01/2016 14:37 [facility] COMPARISON: CT ABDOMEN & PELVIS W/O CONTRAST, October 01, 2016, 3:41. INDICATIONS : Left lower abdomen pain today, evaluate for retroperitoneal bleed. IV CONTRAST: 90 cc Omnipaque 350 (iohexol) IV ORAL CONTRAST: No oral contrast ingested. RADIATION DOSE: 15.31 CTDIvol (mGy) MEDICAL HISTORY : Hypertension. Cardiovascular disease SURGICAL HISTORY : Pacemaker. ENCOUNTER: Initial ACUITY: 1 day PAIN SCALE: 3/10 LOCATION: Left lower quadrant TECHNIQUE: Volumetric scanning was performed using a multi-row detector CT scanner. The data was post processed with a variety of visualization algorithms including full volume maximum intensity projection, multi -planar sliding thin slab reformation, curved planar reformation, and surface rendering techniques. Using automated exposure control and adjustment of the mA and/or kV according to patient size, radiat ion dose was kept as low as reasonably achievable to obtain optimal diagnostic quality images. DICOM format image data is available electronically for review and comparison. FINDINGS: ABDOMINAL AORTA: Extensive atherosclerotic changes of the abdominal aorta without aneurysmal dilatation. There is mild disease involving the superior mesenteric artery at the origin. The inferior mesenteric artery is pa tent. Mild/moderate atherosclerotic changes are seen involving the renal arteries bilaterally. The pr oximal celiac is normal in diameter. BIFURCATION: Normal. RIGHT PELVIS: The right common iliac, internal iliac and external iliac vessels are patent without luminal irregula rity. LEFT PELVIS: The left common iliac, internal iliac and external iliac vessels are patent and without luminal irreg ularity. OTHER: Left-sided retroperitoneal hemorrhage appears unchanged measuring approximately 6.8 x 8.3 cm. There i s a small area of circular extravasation at the cystic site in the region of the common femoral arter y measuring 17 x 15 mm. Large left renal cyst. Right renal cyst and minimal ascites. Bilateral hip pr ostheses causes streak artifact in the pelvis. Diverticulosis of the colon. Bibasilar densities and s mall pleural effusions. CONCLUSION: 1. Left-sided retroperitoneal hemorrhage appears unchanged. 2. Small circular area of extravasation at the site of previous catheterization in the region of the left common femoral artery suggesting possible pseudoaneurysm measuring 17 x 15 mm. 3. Bilateral renal cysts, minimal ascites, bilateral pleural effusions and bibasilar densities and di verticulosis of the colon. Checo Sanchez MD on October 01, 2016 at 15:27 Board Certified Radiologist. This report was verified electronically.
[2016-10-01] MEDS ORDERED: THROMBIN (TOPICAL) 20,000 UNIT VIAL TOPICAL ONE (16:00)
[2016-10-01] MEDS: FERROUS SULFATE 325 MG (65 MG ELEMENTAL IRON) TAB PO SCH (16:07)
--- NOTE | 2016-10-01 16:42 | RADRPT ---
EXAM DATE/TIME: 10/01/2016 16:04 [facility] COMPARISON: CTA ABDOMEN & PELVIS W 3D RECON, October 01, 2016, 14:37. INDICATIONS : Possible aneuyrsm seen on CT. MEDICAL HISTORY : Hypertension. Gastroesophageal reflux disease. Peripheral vascular disease. Irregular heartbeat. Ar thritis. SURGICAL HISTORY : Pacemaker. Tonsillectomy. Inguinal hernia repair. Right hip replacement. Bilateral cataract removal. Left shoulder repair. ENCOUNTER: Initial ACUITY: 2 days PAIN SCORE: 7/10 LOCATION: Left leg. AREA EVALUATED: Left groin. FINDINGS: Target sonogram overlying the left groin is obtained. There is a pseudoaneurysm measuring 3.1 x 1.5 c m along the external iliac artery. The neck measures 5 mm. CONCLUSION: Pseudoaneurysm arising from the left external iliac artery. Checo Sanchez MD on October 01, 2016 at 16:38 Board Certified Radiologist. This report was verified electronically.
--- NOTE | 2016-10-01 16:48 | PD.VS.CON ---
History of Present Illness Chief Complaint: left groin access for right lower extremity atherectomy for claudication symptoms yesterday at about 11 am Developed left flank and groin pain overnight. Consult Requested by: Dr Villa History of Present Illness 81 year old with PAD status post catheterization of right sfa and tibials with left groin access Performed by cardiology noon yesterday. Transfused and hypotensive overnight. Non-contrast CT showed evidence of RP bleed. Consulted this afternoon for further assessment. Requested CTA at this point that showed similar size RP bleed by extravasation anterior to puncture site at left common femoral/external iliac artery. Duplex US (at bedside) shows pseudoaneurysm of left common femoral/external iliac artery region. 5mm short neck.. Past/Family/Social History Past Medical History pad Home Medications Active Scripts Clopidogrel 75 Mg Tab75 Mg PO DAILY #30 TAB Ref 3 Prov:Minor,Nirav Mckee MD 09/30/16 Reported Medications Hydroxychloroquine 200 Mg [id number] Mg PO DAILY #30 TAB Ref 0 Takw with food 09/30/16 Simvastatin 20 Mg Tab20 Mg PO HS #30 TAB Ref 0 09/30/16 Potassium Chloride ER 10 Meq Cap10 Meq PO DAILY #30 CAP Ref 0 09/30/16 Hydrochlorothiazide 25 Mg Tab12.5 Mg PO DAILY #30 TAB Ref 0 09/30/16 Enalapril 10 Mg Tab5 Mg PO DAILY #30 TAB Ref 0 09/30/16 Enalapril 10 Mg Tab10 Mg PO DAILY #30 TAB Ref 0 09/30/16 Omeprazole 20 Mg Tab20 Mg PO DAILY #30 TAB Ref 0 09/30/16 Warfarin 6 Mg Tab6 Mg PO DAILY #30 TAB Ref 0 09/30/16 Coded Allergies: Adhesives (Verified Adverse Reaction, Severe, Rash, 12/15/14) Ciprofloxacin (Verified Adverse Reaction, Severe, DRY MOUTH, 12/15/14) Oxycodone (Verified Adverse Reaction, Intermediate, Confusion, 12/15/14) Review of Systems Hematologic/lymphatic: COMPLAINS OF: Bruising Physical Exam Vitals/I&O Date Time Temp Pulse Resp B/P Pulse Ox O2 Delivery O2 Flow Rate FiO2 10/01/16 11:18 95 21 10/01/16 11:00 58 10/01/16 11:00 98.1 58 18 101/64 95 10/01/16 07:00 98.0 71 18 102/57 95 10/01/16 07:00 71 10/01/16 06:00 98.1 61 20 92/49 97 10/01/16 06:00 60 18 103/49 97 10/01/16 05:00 61 20 92/49 97 10/01/16 04:20 64 10/01/16 04:00 64 20 110/58 98 Manual Cuff/Auscultation 10/01/16 03:27 94/51 10/01/16 03:14 58 10/01/16 03:05 69/40 10/01/16 03:00 69/51 10/01/16 03:00 68 10/01/16 02:37 69/38 10/01/16 02:34 79/43 10/01/16 02:30 80/44 10/01/16 02:00 64 10/01/16 01:00 60 10/01/16 00:00 66 09/30/16 23:00 97.9 61 14 92/52 97 09/30/16 23:00 62 09/30/16 22:00 64 09/30/16 21:00 60 09/30/16 20:23 60 14 135/70 99 09/30/16 20:00 60 09/30/16 18:00 60 09/30/16 17:00 60 Neuro: A&Ox3 HEENT: midline trachea Neck: supple Heart: regular Lungs: CTA bilaterally. Abdomen: soft and nondistended. left lower flank discomfort. Vascular: bilateral DP biphasic. Laboratory Tests Test 10/01/16 10/01/16 10/01/16 10/01/16 03:19 03:25 05:22 06:30 White Blood Count 8.4 Red Blood Count 3.13 Hemoglobin 10.1 10.8 Hematocrit 29.6 32.6 Mean Corpuscular Volume 94.8 Mean Corpuscular Hemoglobin 32.4 Mean Corpuscular Hemoglobin 34.1 Concent Red Cell Distribution Width 13.2 Platelet Count 132 Mean Platelet Volume 7.3 Neutrophils (%) (Auto) 82.3 Lymphocytes (%) (Auto) 11.0 Monocytes (%) (Auto) 6.3 Eosinophils (%) (Auto) 0.1 Basophils (%) (Auto) 0.3 Neutrophils # (Auto) 6.9 Lymphocytes # (Auto) 0.9 Monocytes # (Auto) 0.5 Eosinophils # (Auto) 0.0 Basophils # (Auto) 0.0 CBC Comment DIFF FINAL Differential Comment Blood Type A POSITIVE Crossmatch Leukocyte-Reduced Red Blood Cells Blood Bank Comment Prothrombin Time 13.1 Prothromb Time International 1.2 Ratio Activated Partial 27.3 Thromboplast Time Fibrinogen 284 Sodium Level 143 Potassium Level 5.3 Chloride Level 113 Carbon Dioxide Level 23.1 Anion Gap 7 Blood Urea Nitrogen 31 Creatinine 1.49 Estimat Glomerular Filtration 45 Rate Random Glucose 123 Calcium Level 7.6 Total Bilirubin 0.8 Aspartate Amino Transf 12 (AST/SGOT) Alanine Aminotransferase 13 (ALT/SGPT) Alkaline Phosphatase 64 Total Protein 5.0 Albumin 2.7 Test 10/01/16 10/01/16 10:00 13:20 Hemoglobin 11.3 10.5 Hematocrit 33.2 31.2 Last 48 hours Impressions Abdomen/Pelvis CT 10/01/16 0000 Signed Impressions: Service Date/Time: Saturday, October 01, 2016 14:37 - CONCLUSION: 1. Left-sided retroperitoneal hemorrhage appears unchanged. 2. Small circular area of extravasation at the site of previous catheterization in the region of the left common femoral artery suggesting possible pseudoaneurysm measuring 17 x 15 mm. 3. Bilateral renal cysts, minimal ascites, bilateral pleural effusions and bibasilar densities and diverticulosis of the colon. Checo Sanchez MD Abdomen/Pelvis CT 10/01/16 0000 Signed Impressions: Service Date/Time: Saturday, October 01, 2016 03:41 - CONCLUSION: 1. Large left-sided retroperitoneal hemorrhage measuring 7.7 x 8.1 x 13.9 cm in diameter. This extends into the left retroperitoneal space and slightly displaces the left kidney anteriorly. 2. Bilateral renal cortical cysts, the largest on the left measuring 9 cm in diameter. Demetrius Okeefe MD Assessment and Plan Assessment: (1) Retroperitoneal bleeding Status: Acute Plan 81 year old with pseudoaneurysm and RP bleed on left external iliac and common femoral artery. Hx of hypotension and transfusion. Pseduoaneurysm no amendable to thrombin injection wide short neck. Discussed with and patient repair of pseudoaneurysm. Will treat surgically. Elías Shields DO, FACS Cigarette Making Examiner of Vascular Surgery MEGHANN/Elías Triana DO Oct 01, 2016 16:48
[2016-10-01] MEDS ORDERED: HEPARIN SODIUM - IV 10,000 UNITS/10 ML VIAL ONE (17:04)
[2016-10-01] MEDS ORDERED: HEPARIN SODIUM - SQ 10,000 UNITS/ML VIAL ONE (17:04)
[2016-10-01] MEDS ORDERED: GELFOAM SIZE 100 ONE (17:04)
[2016-10-01] MEDS ORDERED: VANCOMYCIN HCL 1000 MG VIAL ONE (17:04)
[2016-10-01] MEDS ORDERED: PROTAMINE SULFATE 50 MG/5 ML VIAL ONE (17:05)
[2016-10-01] MEDS ORDERED: THROMBIN (TOPICAL) 5,000 UNIT VIAL ONE (17:05)
[2016-10-01] MEDS ORDERED: BUPIVACAINE HCL PF 0.5% 30 ML VIAL ONE (17:37)
--- NOTE | 2016-10-01 19:05 | HHI.PR ---
Immediate Post Op Note Procedure Date: Oct 01, 2016 Pre Op Diagnosis: (1) Retroperitoneal bleeding (2) Pseudoaneurysm of left femoral artery Post Op Diagnosis: (1) Retroperitoneal bleeding (2) Pseudoaneurysm of left femoral artery Surgeon: Elías Shields Hammer Operator(s): Tom Chand Procedure: Left external iliac artery to femoral artery repair with bovine patch. Findings: laceration anterior left common femoral artery to external iliac artery. Additional Information: NA Complications: None Specimen(s) removed: NA Estimated blood loss: 200 cc Anesthesia: General, Local Drains: None Fluids: 1400 cc IVF Tourniquet time (min at mmHg) NA Patient to: PACU Patient Condition: Good Implant/Devices: SEE IMPLANT LOG (if applicable) Date/Time of Procedure: SEE SURGICAL CARE RECORD Elías Shields DO Oct 01, 2016 19:05
[2016-10-01] MEDS ORDERED: GLUCAGON 1 MG/ML VIAL OTHER PRN (19:15)
[2016-10-01] MEDS ORDERED: ONDANSETRON HCL 4 MG/2 ML VIAL IV PUSH PRN (19:15)
[2016-10-01] MEDS ORDERED: Post-op Orders (for Pharmacy) MISC OTHER ONE (19:15)
[2016-10-01] MEDS ORDERED: oxyCODONE/ACETAMINOPHEN 10 MG/325 MG TAB PO PRN (19:15)
[2016-10-01] MEDS ORDERED: DEXTROSE 50% IN WATER 50 ML VIAL(D50) IV PUSH PRN (19:15)
[2016-10-01] MEDS ORDERED: oxyCODONE/ACETAMINOPHEN 5 MG/325 MG TAB PO PRN (19:15)
[2016-10-01] MEDS ORDERED: MORPHINE SULFATE 4 MG/ML INJ IV PUSH PRN (19:15)
[2016-10-01] MEDS ORDERED: ZOLPIDEM TARTRATE 5 MG TAB PO PRN (19:15)
[2016-10-01] MEDS ORDERED: *morphine SULFATE 8 MG/ML PERIprocedure ONLY ONE (19:39)
[2016-10-01] MEDS ORDERED: MIDAZOLAM HCL 2 MG/2 ML VIAL ONE (19:40)
[2016-10-01] MEDS ORDERED: fentaNYL CITRATE 250 MCG/5 ML AMP ONE ×2 (19:41)
[2016-10-01 20:36] LABS: HEMATOCRIT 28.3 % (39.0-51.0); MEAN CELL VOLUME 94.8 FL (80.0-100.0); MEAN CORPUSCULAR HEMOGLOBIN 32.4 PG (27.0-34.0); MEAN CORPUSCULAR HGB CONC 34.1 % (32.0-36.0); PLATELET COUNT 106 TH/MM3 (150-450); RED BLOOD COUNT 2.99 MIL/MM3 (4.50-5.90); REVIEW FLAG FINAL; WHITE BLOOD COUNT 8.2 TH/MM3 (4.0-11.0)
[2016-10-01] MEDS: DOCUSATE CALCIUM 240 MG CAP PO SCH (21:20)
[2016-10-01] MEDS: PANTOPRAZOLE SOD 40 MG DELAYED RELEASE TAB PO SCH (21:20)
[2016-10-01] MEDS: VANCOMYCIN INJ 1,000 MG in SODIUM CHLOR 0.9% 250 ML INJ 250 ML IV SCH (21:20)
[2016-10-02] VITALS (9 sets, daily range): BP systolic 104–144; BP diastolic 42–98; PULSE 66–87; RESP 16–20; TEMP 97.8–99.1; O2SAT 95–97
[2016-10-02] MEDS: CHLORHEXIDINE GLUCONATE 2 % 1 PACK (2 CLOTHS) TOP SCH (04:00)
[2016-10-02 05:14] LABS: HEMATOCRIT 26.4 % (39.0-51.0); MEAN CELL VOLUME 93.3 FL (80.0-100.0); MEAN CORPUSCULAR HEMOGLOBIN 32.6 PG (27.0-34.0); MEAN CORPUSCULAR HGB CONC 34.9 % (32.0-36.0); PLATELET COUNT 110 TH/MM3 (150-450); RED BLOOD COUNT 2.83 MIL/MM3 (4.50-5.90); RED CELL DISTRIBUTION WIDTH 13.8 % (11.6-17.2); REVIEW FLAG FINAL; WHITE BLOOD COUNT 7.1 TH/MM3 (4.0-11.0)
[2016-10-02 05:28] LABS: ALKALINE PHOSPHATASE 63 U/L (45-117); ALT (GPT) 13 U/L (12-78); ANION GAP 6 MEQ/L (5-15); AST (GOT) 18 U/L (15-37); BICARBONATE 22.6 MEQ/L (21.0-32.0); BLOOD UREA NITROGEN 25 MG/DL (7-18); CHLORIDE 114 MEQ/L (98-107); GLOMERULAR FILTRATION RATE 53 ML/MIN (>89); POTASSIUM 4.3 MEQ/L (3.5-5.1); SODIUM (NA) 143 MEQ/L (136-145); TOTAL BILIRUBIN ADULT 0.8 MG/DL (0.2-1.0)
[2016-10-02] MEDS: INSULIN NovoLIN REGULAR SUPPLEMENTAL SCALE SQ SCH ×4 (06:00→18:00)
[2016-10-02] MEDS: SODIUM CHLOR 0.9% 1000 ML INJ 1,000 ML IV SCH ×2 (07:08→15:08)
[2016-10-02] MEDS: ASPIRIN 81 MG CHEW TAB PO SCH (08:32)
[2016-10-02] MEDS: DOCUSATE SODIUM 50 MG/SENNA 8.6 MG TAB PO SCH ×2 (08:32→20:27)
[2016-10-02] MEDS: PANTOPRAZOLE SODIUM 40 MG VIAL IV SCH (08:33)
[2016-10-02] MEDS: VANCOMYCIN INJ 1,000 MG in SODIUM CHLOR 0.9% 250 ML INJ 250 ML IV SCH (08:33)
--- NOTE | 2016-10-02 10:00 | PD.CARD.PN ---
Subjective Subjective Remarks Pt doing well s/p pseudoaneurysm repair, no complaints. Objective Medications Administered Medications Medications (Trade) Dose Ordered Sig/Arlyn Route PRN Reason Start Time Stop Time Status Last Admin Dose Admin Morphine Sulfate (Morphine Inj) 2 mg Q30M PRN IV PUSH BREAKTHROUGH PAIN 09/30/16 12:00 10/01/16 01:55 Aspirin (Aspirin Chew) 81 mg DAILY PO 10/01/16 09:00 10/02/16 08:32 Pantoprazole Sodium (Protonix Inj) 40 mg DAILY IV 10/01/16 09:00 10/02/16 08:33 Chlorhexidine Gluconate (Chlorhexidine 2% Cloth) 3 pack Taper DAILY@04 TOP 10/02/16 04:00 09/28/17 03:59 10/02/16 04:00 Senna/Docusate Sodium (Christelle-Colace) 1 tab BID PO 10/01/16 09:00 10/02/16 08:32 Ferrous Sulfate 325 mg 325 mg BID@,17 PO 10/01/16 17:00 10/01/16 16:07 Sodium Chloride (NS 1000 ml Inj) 1,000 ml @ 100 mls/hr Q10H IV 10/01/16 19:08 10/02/16 19:07 10/02/16 07:08 Pantoprazole Sodium (Protonix) 40 mg HS PO 10/01/16 21:00 10/01/16 21:20 Docusate Calcium 240 mg 240 mg HS PO 10/01/16 21:00 10/01/16 21:20 Vancomycin HCl/ Sodium Chloride (Vancomycin Inj/ NS 250 ml Inj) 250 ml @ 250 mls/hr Q12HR IV 10/01/16 21:00 10/02/16 09:59 10/02/16 08:33 Vital Signs / I&O Vital Signs Date Time Temp Pulse Resp B/P Pulse Ox O2 Delivery O2 Flow Rate FiO2 10/02/16 07:00 99.1 79 16 121/55 97 125/42 10/02/16 07:00 71 10/02/16 04:00 98.6 85 20 111/64 95 144/57 10/02/16 04:00 85 10/02/16 00:00 97.8 69 20 104/54 95 122/47 10/02/16 00:00 69 10/01/16 21:34 97 Nasal Cannula 2.00 10/01/16 20:30 74 10/01/16 20:15 77 16 151/64 96 Nasal Cannula 2 10/01/16 20:15 98.1 76 20 169/68 98 138/54 10/01/16 20:00 90 16 151/70 95 Nasal Cannula 2 10/01/16 19:45 102 16 169/72 98 Nasal Cannula 2 10/01/16 19:30 96 16 148/66 96 Nasal Cannula 2 10/01/16 19:20 98.2 104 16 144/66 95 Nasal Cannula 2 10/01/16 15:00 98.2 64 18 119/67 98 10/01/16 15:00 71 10/01/16 11:18 95 21 10/01/16 11:00 58 10/01/16 11:00 98.1 58 18 101/64 95 I/O 10/01/16 10/01/16 10/01/16 10/02/16 10/02/16 10/02/16 07:00 15:00 23:00 07:00 15:00 23:00 Intake Total 1665 ml 2446 ml 1872 ml Output Total 900 ml 725 ml 730 ml Balance 765 ml 1721 ml 1142 ml Intake Oral 0 ml 120 ml 960 ml IV Total 1415 ml 926 ml 912 ml Packed Cells 250 ml Other 1400 ml Output Urine Total 900 ml 275 ml 730 ml Estimated Blood Loss 50 ml Other 400 ml # Bowel Movements 0 0 0 Physical Exam GENERAL: This is a well-nourished, well-developed patient, in no apparent distress. CARDIOVASCULAR: Regular rate and irregular rhythm without murmurs, gallops, or rubs. RESPIRATORY: Clear to auscultation. Breath sounds equal bilaterally. No wheezes , rales, or rhonchi. GASTROINTESTINAL: LLQ much improved per pt. MUSCULOSKELETAL: Extremities without clubbing, cyanosis, or edema. NEURO: Alert & Oriented x4 to person, place, time, situation. Moves all ext x4 Left groin: soft, non-tender Laboratory Laboratory Tests Test 10/01/16 10/01/16 10/01/16 10/01/16 10:00 13:20 17:09 20:02 Hemoglobin 11.3 GM/DL 10.5 GM/DL 9.7 GM/DL Hematocrit 33.2 % 31.2 % 28.3 % Blood Type A POSITIVE Crossmatch Leukocyte-Reduced Red Blood Cells Blood Bank Comment White Blood Count 8.2 TH/MM3 Red Blood Count 2.99 MIL/MM3 Mean Corpuscular Volume 94.8 FL Mean Corpuscular Hemoglobin 32.4 PG Mean Corpuscular Hemoglobin 34.1 % Concent Red Cell Distribution Width 14.0 % Platelet Count 106 TH/MM3 Mean Platelet Volume 7.9 FL Test 10/02/16 04:30 White Blood Count 7.1 TH/MM3 Red Blood Count 2.83 MIL/MM3 Hemoglobin 9.2 GM/DL Hematocrit 26.4 % Mean Corpuscular Volume 93.3 FL Mean Corpuscular Hemoglobin 32.6 PG Mean Corpuscular Hemoglobin 34.9 % Concent Red Cell Distribution Width 13.8 % Platelet Count 110 TH/MM3 Mean Platelet Volume 7.7 FL Sodium Level 143 MEQ/L Potassium Level 4.3 MEQ/L Chloride Level 114 MEQ/L Carbon Dioxide Level 22.6 MEQ/L Anion Gap 6 MEQ/L Blood Urea Nitrogen 25 MG/DL Creatinine 1.29 MG/DL Estimat Glomerular Filtration 53 ML/MIN Rate Random Glucose 104 MG/DL Calcium Level 7.5 MG/DL Total Bilirubin 0.8 MG/DL Aspartate Amino Transf 18 U/L (AST/SGOT) Alanine Aminotransferase 13 U/L (ALT/SGPT) Alkaline Phosphatase 63 U/L Total Protein 5.2 GM/DL Albumin 2.8 GM/DL Imaging Last Impressions Lower Extremity Ultrasound 10/01/16 1606 Signed Impressions: Service Date/Time: Saturday, October 01, 2016 16:04 - CONCLUSION: Pseudoaneurysm arising from the left external iliac artery. Checo Sanchez MD Abdomen/Pelvis CT 10/01/16 0000 Signed Impressions: Service Date/Time: Saturday, October 01, 2016 14:37 - CONCLUSION: 1. Left-sided retroperitoneal hemorrhage appears unchanged. 2. Small circular area of extravasation at the site of previous catheterization in the region of the left common femoral artery suggesting possible pseudoaneurysm measuring 17 x 15 mm. 3. Bilateral renal cysts, minimal ascites, bilateral pleural effusions and bibasilar densities and diverticulosis of the colon. Checo Sanchez MD Assessment and Plan Problem List: (1) Retroperitoneal bleeding Assessment and Plan: Currently sable, pain resolved BP stable, continue careful observation in ICU (2) Atrial fibrillation Assessment and Plan: holding warfarin, good rates. (3) Pseudoaneurysm of left femoral artery Assessment and Plan: now repaired (4) PAD (peripheral artery disease) Assessment and Plan: Off plavix, per Dr. Medrano. Assessment and Plan Will discuss all of the above w/ Dr. Medrano as well, he will return tomorrow to resume care. Josue Hernández MD Oct 02, 2016 10:00
[2016-10-02] MEDS: FERROUS SULFATE 325 MG (65 MG ELEMENTAL IRON) TAB PO SCH ×2 (12:11→17:27)
--- NOTE | 2016-10-02 14:10 | PD.VS.PN ---
Subjective POD #: 1 Procedure(s): left external iliac and VAT PACKER repair Subjective/Hospital Course No complaints. Objective Neuro: CN2-12 intact Pulmonary: CTA bilateral Cardiac: Irregular Vascular: left DP triphasic and right PT triphasic Laboratory Laboratory Tests Test 10/01/16 10/01/16 10/02/16 17:09 20:02 04:30 Blood Type A POSITIVE Crossmatch Leukocyte-Reduced Red Blood Cells Blood Bank Comment White Blood Count 8.2 7.1 Red Blood Count 2.99 2.83 Hemoglobin 9.7 9.2 Hematocrit 28.3 26.4 Mean Corpuscular Volume 94.8 93.3 Mean Corpuscular Hemoglobin 32.4 32.6 Mean Corpuscular Hemoglobin 34.1 34.9 Concent Red Cell Distribution Width 14.0 13.8 Platelet Count 106 110 Mean Platelet Volume 7.9 7.7 Sodium Level 143 Potassium Level 4.3 Chloride Level 114 Carbon Dioxide Level 22.6 Anion Gap 6 Blood Urea Nitrogen 25 Creatinine 1.29 Estimat Glomerular Filtration 53 Rate Random Glucose 104 Calcium Level 7.5 Total Bilirubin 0.8 Aspartate Amino Transf 18 (AST/SGOT) Alanine Aminotransferase 13 (ALT/SGPT) Alkaline Phosphatase 63 Total Protein 5.2 Albumin 2.8 Imaging Last 48 hours Impressions Lower Extremity Ultrasound 10/01/16 1606 Signed Impressions: Service Date/Time: Saturday, October 01, 2016 16:04 - CONCLUSION: Pseudoaneurysm arising from the left external iliac artery. Checo Sanchez MD Abdomen/Pelvis CT 10/01/16 0000 Signed Impressions: Service Date/Time: Saturday, October 01, 2016 14:37 - CONCLUSION: 1. Left-sided retroperitoneal hemorrhage appears unchanged. 2. Small circular area of extravasation at the site of previous catheterization in the region of the left common femoral artery suggesting possible pseudoaneurysm measuring 17 x 15 mm. 3. Bilateral renal cysts, minimal ascites, bilateral pleural effusions and bibasilar densities and diverticulosis of the colon. Checo Sanchez MD Abdomen/Pelvis CT 10/01/16 0000 Signed Impressions: Service Date/Time: Saturday, October 01, 2016 03:41 - CONCLUSION: 1. Large left-sided retroperitoneal hemorrhage measuring 7.7 x 8.1 x 13.9 cm in diameter. This extends into the left retroperitoneal space and slightly displaces the left kidney anteriorly. 2. Bilateral renal cortical cysts, the largest on the left measuring 9 cm in diameter. Demetrius Okeefe MD Assessment and Plan Assessment: (1) Retroperitoneal bleeding Status: Acute Plan 81 year old with pseudoaneurysm and RP bleed on left external iliac and common femoral artery status post surgical repair. Patient OOB to chair today Discontinue arterial line. Spoke with daughter and at bedside. Plan for downgrade to [facility]. Elías Shields DO, FACS Rac Specialist of Vascular Surgery /[place] Elías Shields DO Oct 02, 2016 14:10
[2016-10-02] MEDS ORDERED: CALCIUM CARBONATE 500 MG CHEWABLE TAB PO PRN (15:15)
--- NOTE | 2016-10-02 18:00 | HHI.CCPN ---
Subjective Remarks/Hospital Course Hospital Course: 81 y/o man s/p extensive lower extremity peripheral vascular procedures developed worsening hypotension requiring crystalloid bolus infusion and red cell transfusion. Complains of left lower quadrant pain and back pain. Left groin is not swollen. No chest pain or SOB. Subjective: 10/02: taken to OR yesterday for pseudoaneurysm repair. hgb stable. patient remains stable. no complaints. tolerating diet. Objective Vital Signs Date Time Temp Pulse Resp B/P Pulse Ox O2 Delivery O2 Flow Rate FiO2 10/02/16 15:00 87 10/02/16 15:00 98.2 16 143/69 96 Arterial Line 10/01/16 21:34 Nasal Cannula 2.00 10/01/16 11:18 21 Intake and Output 10/01/16 10/01/16 10/02/16 08:00 16:00 00:00 Intake Total 1665 ml 2446 ml Output Total 900 ml 725 ml Balance 765 ml 1721 ml Result Diagram: 10/02/16 0430 10/02/16 0430 Objective Remarks Head: Normal. Neck: Supple, airway widely patent. Lungs: Clear, no wheezes or crackles. Heart: Irreg Irreg, No JVD. Abdomen: Fullness LLQ with tenderness to palpation. No peritoneal irritation. Extremities: warm, well perfused. dressing c/d/i. Neuro: O X 3, RASS 0. fc x 4. A/P Assessment and Plan Assessment: 81yM s/p vascular intervention complicated by retroperitoneal hematoma and hemorrhagic shock, now s/p pseudoaneurysm repair. clinically improving. will keep in ICU one more day and then plan to move out of ICU tomorrow. 1. S/P peripheral vascular intervention lower extremities. 2. s/p hemorrhagic shock 3. s/p pseudoaneurysm repair 4. anemia secondary to acute blood loss Plan: 1. continue serial hgb checks 2. does not meet transfusion triggers at this time. goal hgb > 7. 3. continue neurovascular checks post pseudoaneurysm repair. 4. remain in CVICU for close monitoring 5. heart healthy diet as tolerated. 6. could leave CVICU tomorrow if clinically stable. [facility] will sign off once transferred out of ICU. Damir Villa MD Oct 02, 2016 18:00
[2016-10-02 19:32] LABS: HEMATOCRIT 29.9 % (39.0-51.0); REVIEW FLAG FINAL
[2016-10-02] MEDS: PANTOPRAZOLE SOD 40 MG DELAYED RELEASE TAB PO SCH (20:27)
[2016-10-02] MEDS: DOCUSATE CALCIUM 240 MG CAP PO SCH (20:27)
--- NOTE | 2016-10-02 20:42 | MP ---
cc: ELÍAS STARKS DATE OF SURGERY 10/01/2016 PREOPERATIVE DIAGNOSIS Pseudoaneurysm with a retroperitoneal hemorrhage left external / common femoral artery, SURGEON Elías Starks D.O. IV FLUIDS 1400 cc of crystalloid. ESTIMATED BLOOD LOSS Approximately 200 cc. URINE OUTPUT 300 cc. COMPLICATIONS None. DISPOSITION To PACU PROCEDURE The patient was prepped and draped in sterile fashion from the umbilicus to the knees. We did give the patient 1 gram of IV vancomycin. I made a left groin incision in a hockey stick pattern with the left flank bumped up. Using scalpel and electrocautery I dissected down inferiorly and superiorly. Inferiorly I found the superficial and profunda femoral arteries and placed vessel loops around these. I then moved superior and lateral and was able to remove the hematoma that extended to just above the inguinal ligament. I was able to find a hole anteriorly. It was a laceration anterior. It was temporarily sutured with a 5-0 Prolene and a BV-1. We did get control distally with a sponge stick and then proximally with a vessel loop. I did heparinize the patient before my proximal dissection to an ACT of greater than 300. Once I got control of the vessel, I placed profunda clamps on the superficial femoral and profunda femoral arteries and then put an angled Satinsky clamp on the external iliac artery. I made a longitudinal arteriotomy with 11-blade and Dyson scissors extending from the common femoral artery up across the external iliac artery. It should be noted that I looked posteriorly to make sure there was no bleeding in the artery from the stick distally and I did not see any bleeding on the external iliac artery actively as I inspected as well as I could. Then I inspected it through my arteriotomy and I did not see anything. The artery was quite diseased so I used a 0.8 x 8.0 bovine patch for approximately a 2 cm length of the anterior patch. I used a 5-0 and a BV-1 to sew this in and I required three correction sutures with two 6-0 Prolene and a 5-0 Prolene at the end. It should be noted that I did have to take the crossing veins anterior to the external iliac artery with median clips and 2-0 ties as needed. It should be noted that I evacuated any hematoma that was in the groin. I did use FloSeal and Surgicel to help out with hemostasis and I did reverse the patient's anticoagulation with 40 units of protamine before finishing my case. We closed the layers with 2-0 and 3-0 Vicryl absorbable suture and a 4-0 Monocryl. I did use bupivacaine approximately 20 mL with epinephrine in the subcutaneous space in order to help out with anesthesia for the postoperative pain. At the end of the case we placed Dermabond and then we used a Telfa dressing with an adhesive. The patient tolerated the procedure well and was taken to the ICU at the end of the case. DO CARL Velasquez/ISRA /7:01 PM /8:27 PM MTDD
[2016-10-03] VITALS (15 sets, daily range): BP systolic 111–162; BP diastolic 46–71; PULSE 67–97; RESP 14–22; TEMP 98.4–99.4; O2SAT 94–97
[2016-10-03] MEDS: CHLORHEXIDINE GLUCONATE 2 % 1 PACK (2 CLOTHS) TOP SCH (04:00)
[2016-10-03] MEDS: INSULIN NovoLIN REGULAR SUPPLEMENTAL SCALE SQ SCH ×5 (06:00→23:37)
[2016-10-03 06:33] LABS: HEMATOCRIT 27.1 % (39.0-51.0); MEAN CELL VOLUME 93.6 FL (80.0-100.0); MEAN CORPUSCULAR HEMOGLOBIN 31.1 PG (27.0-34.0); MEAN CORPUSCULAR HGB CONC 33.2 % (32.0-36.0); PLATELET COUNT 88 TH/MM3 (150-450); RED BLOOD COUNT 2.89 MIL/MM3 (4.50-5.90); RED CELL DISTRIBUTION WIDTH 15.2 % (11.6-17.2); WHITE BLOOD COUNT 6.2 TH/MM3 (4.0-11.0)
[2016-10-03 06:51] LABS: REVIEW FLAG FINAL
[2016-10-03 07:02] LABS: BICARBONATE 22.3 MEQ/L (21.0-32.0); POTASSIUM 4.2 MEQ/L (3.5-5.1)
--- NOTE | 2016-10-03 07:07 | PD.VS.PN ---
Subjective Procedure(s): left external iliac and RESTROOMS OR LOUNGES MAID repair Subjective/Hospital Course No complaints. Objective Neuro: intact. Vascular: bilateral DPs with phasic signals. left groin dressing intact. Laboratory Laboratory Tests Test 10/02/16 10/03/16 10/03/16 19:01 06:14 06:21 Hemoglobin 10.3 9.0 Hematocrit 29.9 27.1 Sodium Level 142 Potassium Level 4.2 Chloride Level 112 Carbon Dioxide Level 22.3 Anion Gap 8 Blood Urea Nitrogen 21 Creatinine 1.38 Estimat Glomerular Filtration 49 Rate Random Glucose 104 Calcium Level 7.8 White Blood Count 6.2 Red Blood Count 2.89 Mean Corpuscular Volume 93.6 Mean Corpuscular Hemoglobin 31.1 Mean Corpuscular Hemoglobin 33.2 Concent Red Cell Distribution Width 15.2 Platelet Count 88 Mean Platelet Volume 7.2 Imaging Last 48 hours Impressions Lower Extremity Ultrasound 10/01/16 1606 Signed Impressions: Service Date/Time: Saturday, October 01, 2016 16:04 - CONCLUSION: Pseudoaneurysm arising from the left external iliac artery. Checo Sanchez MD Assessment and Plan Assessment: (1) Retroperitoneal bleeding Status: Acute Plan 81 year old with pseudoaneurysm and RP bleed on left external iliac and common femoral artery status post surgical repair. Would hold on bedrest today in unit. Will follow up on h/h since was a drop. Elías Shields DO, FACS Mineral Surveying Technician of Vascular Surgery MEGHANN/Elías Triana DO Oct 03, 2016 07:07 Elías Shields DO Oct 03, 2016 07:07
--- NOTE | 2016-10-03 07:45 | PD.CARD.PN ---
Subjective Subjective Remarks denies any complaints ([place]) Objective Vital Signs / I&O Vital Signs Date Time Temp Pulse Resp B/P Pulse Ox O2 Delivery O2 Flow Rate FiO2 10/03/16 07:01 95 21 10/03/16 04:00 98.5 80 20 153/67 94 10/03/16 03:20 68 10/03/16 00:00 99.4 71 22 111/54 94 10/02/16 23:35 87 10/02/16 22:00 97 21 10/02/16 20:00 98.5 82 20 131/98 97 10/02/16 19:22 76 10/02/16 15:00 87 10/02/16 15:00 98.2 81 16 143/69 96 Arterial Line 10/02/16 11:00 98.9 66 16 105/56 95 113/48 10/02/16 11:00 72 I/O 10/02/16 10/02/16 10/02/16 10/03/16 10/03/16 10/03/16 07:00 15:00 23:00 07:00 15:00 23:00 Intake Total 1872 ml 1944 ml 480 ml Output Total 730 ml 500 ml 175 ml Balance 1142 ml 1444 ml 305 ml Intake Oral 960 ml 360 ml 480 ml IV Total 912 ml 1334 ml 0 ml Packed Cells 250 ml Output Urine Total 730 ml 500 ml 175 ml # Voids 4 # Bowel Movements 0 1 2 Physical Exam GENERAL: Well-nourished, well-developed patient in no apparent distress. NECK: No JVD. No carotid bruit. CARDIOVASCULAR: IR IR. S1/S2 no murmur, rub, or gallop. RESPIRATORY: No accessory muscle use. Clear to auscultation. Breath sounds equal bilaterally. GASTROINTESTINAL: Abdomen soft, non-tender, nondistended. MUSCULOSKELETAL: Extremities without clubbing, cyanosis, or edema. left groin c/ d/i Laboratory Laboratory Tests Test 10/02/16 10/03/16 10/03/16 19:01 06:14 06:21 Hemoglobin 10.3 GM/DL 9.0 GM/DL Hematocrit 29.9 % 27.1 % Sodium Level 142 MEQ/L Potassium Level 4.2 MEQ/L Chloride Level 112 MEQ/L Carbon Dioxide Level 22.3 MEQ/L Anion Gap 8 MEQ/L Blood Urea Nitrogen 21 MG/DL Creatinine 1.38 MG/DL Estimat Glomerular Filtration 49 ML/MIN Rate Random Glucose 104 MG/DL Calcium Level 7.8 MG/DL White Blood Count 6.2 TH/MM3 Red Blood Count 2.89 MIL/MM3 Mean Corpuscular Volume 93.6 FL Mean Corpuscular Hemoglobin 31.1 PG Mean Corpuscular Hemoglobin 33.2 % Concent Red Cell Distribution Width 15.2 % Platelet Count 88 TH/MM3 Mean Platelet Volume 7.2 FL ([place]) Assessment and Plan Problem List: (1) Retroperitoneal bleeding (2) Atrial fibrillation (3) Pseudoaneurysm of left femoral artery (4) PAD (peripheral artery disease) Assessment and Plan PAD s/p 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 minimize blood draws. cont FeSO4 CKD - cr stable. normal ef. hematuria - probable traumatic aaron monday. gentle hydration 100/h x 1 liter. UA resume plavix tomorrow if OK with Dr. Shields cont asa no coumadin x 1 month for afib watery stools. if recurrence, check cdiff transfer to [facility] ambulate DC planning tomorrow or Wed appreciate refrigeration installer and vascular surgery assistance. transfer to [facility] hospitalist (Nirav Medrano MD) [place] Oct 03, 2016 07:45 Nirav Medrano MD Oct 03, 2016 13:53
[2016-10-03] MEDS: DOCUSATE SODIUM 50 MG/SENNA 8.6 MG TAB PO SCH (09:00)
[2016-10-03] MEDS: ASPIRIN 81 MG CHEW TAB PO SCH (09:52)
[2016-10-03] MEDS: PANTOPRAZOLE SODIUM 40 MG VIAL IV SCH (09:52)
[2016-10-03 11:56] LABS: HEMATOCRIT 26.5 % (39.0-51.0)
[2016-10-03 11:58] LABS: REVIEW FLAG FINAL
[2016-10-03] MEDS: FERROUS SULFATE 325 MG (65 MG ELEMENTAL IRON) TAB PO SCH ×2 (12:34→17:40)
[2016-10-03] MEDS: SODIUM CHLOR 0.9% 1000 ML INJ 1,000 ML IV SCH ×2 (14:43→23:38)
[2016-10-03 17:12] LABS: BACTERIA, URINE OCC /hpf; BLOOD, URINE LARGE (NEG); COMMENT (UR) CULTURE INDICATED; CULTURE IF INDICATED CULTURE INDICATED; GLUCOSE,URINE NEG (NEG); KETONE, URINE NEG (NEG); MUCUS URINE FEW /lpf (OCC); NITRITE,URINE NEG (NEG); PH, URINE 5.5 (5.0-8.5); SQUAMOUS EPITHELIAL CELL URINE 1 /hpf (0-5)
[2016-10-03 17:13] LABS: URINE COLOR LIGHT-RED (YELLW/STRAW)
[2016-10-03] MEDS: PANTOPRAZOLE SOD 40 MG DELAYED RELEASE TAB PO SCH (20:47)
[2016-10-04] VITALS (24 sets, daily range): BP systolic 129–152; BP diastolic 66–98; PULSE 62–94; RESP 17–20; TEMP 97.7–98.7; O2SAT 95–100
[2016-10-04] MEDS: CHLORHEXIDINE GLUCONATE 2 % 1 PACK (2 CLOTHS) TOP SCH (04:00)
[2016-10-04 05:46] LABS: HEMATOCRIT 25.6 % (39.0-51.0); MEAN CORPUSCULAR HEMOGLOBIN 31.8 PG (27.0-34.0); MEAN CORPUSCULAR HGB CONC 34.6 % (32.0-36.0); PLATELET COUNT 109 TH/MM3 (150-450); RED BLOOD COUNT 2.78 MIL/MM3 (4.50-5.90); RED CELL DISTRIBUTION WIDTH 14.4 % (11.6-17.2); REVIEW FLAG FINAL; WHITE BLOOD COUNT 5.6 TH/MM3 (4.0-11.0)
[2016-10-04] MEDS: INSULIN NovoLIN REGULAR SUPPLEMENTAL SCALE SQ SCH ×3 (05:47→17:33)
[2016-10-04 05:51] LABS: BICARBONATE 21.5 MEQ/L (21.0-32.0)
--- NOTE | 2016-10-04 08:09 | PD.CARD.PN ---
Subjective Subjective Remarks feels well Objective Vital Signs / I&O Vital Signs Date Time Temp Pulse Resp B/P Pulse Ox O2 Delivery O2 Flow Rate FiO2 10/04/16 07:00 98.7 84 20 152/98 95 10/04/16 07:00 68 10/04/16 06:00 80 10/04/16 05:00 70 10/04/16 04:00 70 10/04/16 03:00 98.4 81 20 134/70 97 10/04/16 03:00 72 10/04/16 02:00 70 10/04/16 01:00 70 10/04/16 00:00 72 10/03/16 23:00 84 10/03/16 23:00 98.6 77 18 114/55 96 10/03/16 22:00 76 10/03/16 21:00 70 10/03/16 20:00 70 10/03/16 19:00 98.6 75 20 138/69 97 10/03/16 19:00 70 10/03/16 18:00 74 10/03/16 17:00 69 10/03/16 16:35 97 10/03/16 16:35 98.4 84 20 162/71 97 10/03/16 15:00 98.4 67 16 118/63 96 10/03/16 11:00 98.5 71 16 121/57 97 10/03/16 11:00 71 I/O 10/03/16 10/03/16 10/03/16 10/04/16 10/04/16 10/04/16 07:00 15:00 23:00 07:00 15:00 23:00 Intake Total 480 ml 380 ml 1080 ml Output Total 175 ml 900 ml 675 ml Balance 305 ml -520 ml 405 ml Intake Oral 480 ml 240 ml 480 ml IV Total 0 ml 140 ml 600 ml Output Urine Total 175 ml 900 ml 675 ml # Voids 4 1 # Bowel Movements 2 2 1 Physical Exam GENERAL: Well-nourished, well-developed patient in no apparent distress. NECK: No JVD. No carotid bruit. CARDIOVASCULAR: IR IR. S1/S2 no murmur, rub, or gallop. RESPIRATORY: No accessory muscle use. Clear to auscultation. Breath sounds equal bilaterally. GASTROINTESTINAL: Abdomen soft, non-tender, nondistended. MUSCULOSKELETAL: Extremities without clubbing, cyanosis, or edema. left groin c/ d/i Laboratory Laboratory Tests Test 10/03/16 10/03/16 10/04/16 11:30 16:10 05:00 Hemoglobin 9.1 GM/DL 8.8 GM/DL Hematocrit 26.5 % 25.6 % Urine Color LIGHT-RED Urine Turbidity CLOUDY Urine pH 5.5 Urine Specific [place] 1.010 Urine Protein 30 mg/dL Urine Glucose (UA) NEG mg/dL Urine Ketones NEG mg/dL Urine Occult Blood LARGE Urine Nitrite NEG Urine Bilirubin NEG Urine Urobilinogen LESS THAN 2.0 MG/DL Urine Leukocyte Esterase NEG Urine RBC /hpf Urine WBC 22 /hpf Urine Squamous Epithelial 1 /hpf Cells Urine Amorphous Sediment RARE Urine Bacteria OCC /hpf Urine Mucus FEW /lpf Microscopic Urinalysis Comment CULTURE INDICATED White Blood Count 5.6 TH/MM3 Red Blood Count 2.78 MIL/MM3 Mean Corpuscular Volume 92.0 FL Mean Corpuscular Hemoglobin 31.8 PG Mean Corpuscular Hemoglobin 34.6 % Concent Red Cell Distribution Width 14.4 % Platelet Count 109 TH/MM3 Mean Platelet Volume 7.8 FL Sodium Level 142 MEQ/L Potassium Level 4.0 MEQ/L Chloride Level 113 MEQ/L Carbon Dioxide Level 21.5 MEQ/L Anion Gap 8 MEQ/L Blood Urea Nitrogen 19 MG/DL Creatinine 1.28 MG/DL Estimat Glomerular Filtration 54 ML/MIN Rate Random Glucose 106 MG/DL Calcium Level 7.9 MG/DL Assessment and Plan Problem List: (1) Retroperitoneal bleeding (2) Atrial fibrillation (3) Pseudoaneurysm of left femoral artery (4) PAD (peripheral artery disease) Assessment and Plan clinically 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 minimize blood draws. cont FeSO4 CKD - cr stable. normal EF. hematuria - resolved resume Plavix today if OK with Dr. Shields cont asa no Coumadin x 1 month for a-fib DC planning today or Mon [place] Oct 04, 2016 08:09
[2016-10-04] MEDS: ASPIRIN 81 MG CHEW TAB PO SCH (08:38)
--- NOTE | 2016-10-04 09:02 | HHI.PR ---
Subjective Remarks eager for d/c diarrhea resolved Objective Vitals heart reg lung cta abd s/nt ext no edema Vital Signs Date Time Temp Pulse Resp B/P Pulse Ox O2 Delivery O2 Flow Rate FiO2 10/04/16 08:00 76 10/04/16 07:00 98.7 84 20 152/98 95 10/04/16 07:00 68 10/04/16 06:00 80 10/04/16 05:00 70 10/04/16 04:00 70 10/04/16 03:00 98.4 81 20 134/70 97 10/04/16 03:00 72 10/04/16 02:00 70 10/04/16 01:00 70 10/04/16 00:00 72 10/03/16 23:00 84 10/03/16 23:00 98.6 77 18 114/55 96 10/03/16 22:00 76 10/03/16 21:00 70 10/03/16 20:00 70 10/03/16 19:00 98.6 75 20 138/69 97 10/03/16 19:00 70 10/03/16 18:00 74 10/03/16 17:00 69 10/03/16 16:35 97 10/03/16 16:35 98.4 84 20 162/71 97 10/03/16 15:00 98.4 67 16 118/63 96 10/03/16 11:00 98.5 71 16 121/57 97 10/03/16 11:00 71 10/03/16 10/03/16 10/04/16 15:00 23:00 07:00 Intake Total 380 ml 1080 ml Output Total 900 ml 675 ml Balance -520 ml 405 ml Intake Oral 240 ml 480 ml IV Total 140 ml 600 ml Output Urine Total 900 ml 675 ml # Voids 1 # Bowel Movements 2 1 Result Diagram: 10/04/16 0500 10/04/16 0500 A/P Problem List: (1) PAD (peripheral artery disease) Status: Acute Plan: Pt has severe PAD s/p Bilateral lower extremity peripheral angiography Orbital rotational atherectomy and balloon angioplasty with drug-coated balloon in the left superficial femoral artery. Orbital rotational atherectomy and balloon angioplasty with drug-coated balloon of the right superficial femoral artery. Percutaneous transluminal angioplasty of the right anterior tibial artery. 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 will check with cardiology and vascular. coumadin on hold and awaiting vascular to ok plavix. currently on asa. (2) Pseudoaneurysm of left femoral artery Status: Acute Plan: see above (3) Retroperitoneal bleeding Status: Acute Plan: see above (4) Atrial fibrillation Status: Chronic (5) Hyperlipemia Status: Chronic (6) Hypertension Status: Chronic (7) CKD (chronic kidney disease), stage III Status: Chronic John Jones MD Oct 04, 2016 09:02
--- NOTE | 2016-10-04 10:13 | PD.VS.PN ---
Subjective POD #: 3 Procedure(s): left external iliac and MAINTENANCE CONTROLLER repair Subjective/Hospital Course Pt sitting in chair w/o complaints Dressing changed to Left groin (Lisa Morrow) Objective Vitals/I&O Date Time Temp Pulse Resp B/P Pulse Ox O2 Delivery O2 Flow Rate FiO2 10/04/16 09:00 66 10/04/16 08:00 76 10/04/16 07:00 98.7 84 20 152/98 95 10/04/16 07:00 68 10/04/16 06:00 80 10/04/16 05:00 70 10/04/16 04:00 70 10/04/16 03:00 98.4 81 20 134/70 97 10/04/16 03:00 72 10/04/16 02:00 70 10/04/16 01:00 70 10/04/16 00:00 72 10/03/16 23:00 84 10/03/16 23:00 98.6 77 18 114/55 96 10/03/16 22:00 76 10/03/16 21:00 70 10/03/16 20:00 70 10/03/16 19:00 98.6 75 20 138/69 97 10/03/16 19:00 70 10/03/16 18:00 74 10/03/16 17:00 69 10/03/16 16:35 97 10/03/16 16:35 98.4 84 20 162/71 97 10/03/16 15:00 98.4 67 16 118/63 96 10/03/16 11:00 98.5 71 16 121/57 97 10/03/16 11:00 71 10/04/16 10/04/16 10/04/16 07:00 15:00 23:00 Intake Total 1080 ml Output Total 675 ml Balance 405 ml Exam: GENERAL: Pt alert in NAD, GCS15 SKIN: Warm and dry/ Left groin incision intact w/o hematoma R/D/S/O. Pt is with multiple small vesicles with epidermal erosions/erythema along the border of the incision line where the tape was placed (dressing) Pt reported allergy to tape MUSCULOSKELETAL: No cyanosis/ edema BLE warm w/ motor intact Palpable R DP + DP heard via Doppler Laboratory Laboratory Tests Test 10/03/16 10/03/16 10/04/16 11:30 16:10 05:00 Hemoglobin 9.1 8.8 Hematocrit 26.5 25.6 Urine Color LIGHT-RED Urine Turbidity CLOUDY Urine pH 5.5 Urine Specific [place] 1.010 Urine Protein 30 Urine Glucose (UA) NEG Urine Ketones NEG Urine Occult Blood LARGE Urine Nitrite NEG Urine Bilirubin NEG Urine Urobilinogen LESS THAN 2.0 Urine Leukocyte Esterase NEG Urine RBC Urine WBC 22 Urine Squamous Epithelial 1 Cells Urine Amorphous Sediment RARE Urine Bacteria OCC Urine Mucus FEW Microscopic Urinalysis Comment CULTURE INDICATED White Blood Count 5.6 Red Blood Count 2.78 Mean Corpuscular Volume 92.0 Mean Corpuscular Hemoglobin 31.8 Mean Corpuscular Hemoglobin 34.6 Concent Red Cell Distribution Width 14.4 Platelet Count 109 Mean Platelet Volume 7.8 Sodium Level 142 Potassium Level 4.0 Chloride Level 113 Carbon Dioxide Level 21.5 Anion Gap 8 Blood Urea Nitrogen 19 Creatinine 1.28 Estimat Glomerular Filtration 54 Rate Random Glucose 106 Calcium Level 7.9 Date/Time Procedure Status Source Growth 10/03/16 16:10 Urine Culture Received Urine Random Urine Pending (Lisa Morrow) Assessment and Plan Assessment: (1) Retroperitoneal bleeding Status: Acute Plan 81 year old with pseudoaneurysm and RP bleed on left external iliac and common femoral artery status post surgical repair Plan Pt doing well this am Continue PT/OOB Hold Plavix times 1 week Out patient f/u 1 week Do not apply tape to Left groin dressing Lisa TURPIN [email or web address] [phone] Discharge Planning Potentially tomorrow, if does OK with PT and H&H stabilized Arranged for F/U next week in our out patient clinic Appointment time given to Patient (Lisa Morrow) Plan I agree with above assessment and plan. If No change in h/h in am should be ok to be discharged. Elías Shields DO, FACS (Elías Shields DO) Lisa Morrow Oct 04, 2016 10:13 Elías Shields DO Oct 04, 2016 11:29
[2016-10-04] MEDS: FERROUS SULFATE 325 MG (65 MG ELEMENTAL IRON) TAB PO SCH ×2 (11:48→17:33)
[2016-10-04] MEDS: PANTOPRAZOLE SOD 40 MG DELAYED RELEASE TAB PO SCH (20:30)
[2016-10-05] VITALS (16 sets, daily range): BP systolic 130–150; BP diastolic 71–73; PULSE 60–78; RESP 18–20; TEMP 97.8–98.4; O2SAT 99–100
[2016-10-05] MEDS: CHLORHEXIDINE GLUCONATE 2 % 1 PACK (2 CLOTHS) TOP SCH (04:00)
[2016-10-05] MEDS: INSULIN NovoLIN REGULAR SUPPLEMENTAL SCALE SQ SCH ×3 (06:00→12:00)
[2016-10-05 06:15] LABS: AUTOMATED NEUTROPHIL # 3.3 TH/MM3 (1.8-7.7); BASOPHIL % 0.4 % (0.0-2.0); EOSINOPHIL # 0.2 TH/MM3 (0-0.4); EOSINOPHIL % 3.2 % (0.0-4.0); HEMATOCRIT 25.9 % (39.0-51.0); HEMO FLAGS DIFF FINAL; LYMPH % 18.3 % (9.0-44.0); LYMPHOCYTE # 0.9 TH/MM3 (1.0-4.8); MEAN CELL VOLUME 93.5 FL (80.0-100.0); MEAN CORPUSCULAR HGB CONC 33.1 % (32.0-36.0); MONO % 9.9 % (0.0-8.0); NEUT % 68.2 % (16.0-70.0); PLATELET COUNT 122 TH/MM3 (150-450); RED BLOOD COUNT 2.77 MIL/MM3 (4.50-5.90); RED CELL DISTRIBUTION WIDTH 14.2 % (11.6-17.2); WHITE BLOOD COUNT 4.8 TH/MM3 (4.0-11.0)
--- NOTE | 2016-10-05 08:06 | PD.CARD.PN ---
Subjective Subjective Remarks doing well no complaints bandage to left groin Objective Vital Signs / I&O Vital Signs Date Time Temp Pulse Resp B/P Pulse Ox O2 Delivery O2 Flow Rate FiO2 10/05/16 07:01 60 10/05/16 06:00 62 10/05/16 05:00 68 10/05/16 04:00 62 10/05/16 03:00 97.8 72 20 150/73 99 10/05/16 03:00 62 10/05/16 02:00 73 10/05/16 01:00 64 10/05/16 00:00 64 10/04/16 23:00 70 10/04/16 23:00 98.6 79 18 137/66 97 10/04/16 22:00 66 10/04/16 21:00 70 10/04/16 20:00 70 10/04/16 19:00 70 10/04/16 19:00 98.6 70 20 129/68 98 10/04/16 18:00 81 10/04/16 17:00 94 10/04/16 16:00 68 10/04/16 15:00 98.0 68 17 150/81 100 10/04/16 15:00 89 10/04/16 14:00 65 10/04/16 13:00 74 10/04/16 12:00 66 10/04/16 11:00 97.7 79 20 150/78 100 10/04/16 11:00 62 10/04/16 10:00 69 10/04/16 09:00 66 I/O 10/04/16 10/04/16 10/04/16 10/05/16 10/05/16 10/05/16 07:00 15:00 23:00 07:00 15:00 23:00 Intake Total 1080 ml 720 ml 480 ml Output Total 675 ml 150 ml Balance 405 ml 720 ml 330 ml Intake Oral 480 ml 720 ml 480 ml IV Total 600 ml Output Urine Total 675 ml 150 ml # Voids 1 5 2 # Bowel Movements 1 1 Physical Exam EYES: No scleral icterus. No injection or drainage. NECK: Supple, trachea midline. No JVD or lymphadenopathy. CARDIOVASCULAR: Regular rate and rhythm without murmurs, gallops, or rubs. RESPIRATORY: Breath sounds equal bilaterally. No accessory muscle use. GASTROINTESTINAL: Abdomen soft, minimal tenderness with deep palpation, nondistended. 2+ right DP pulse. Laboratory Laboratory Tests Test 10/05/16 05:50 White Blood Count 4.8 TH/MM3 Red Blood Count 2.77 MIL/MM3 Hemoglobin 8.6 GM/DL Hematocrit 25.9 % Mean Corpuscular Volume 93.5 FL Mean Corpuscular Hemoglobin 31.0 PG Mean Corpuscular Hemoglobin 33.1 % Concent Red Cell Distribution Width 14.2 % Platelet Count 122 TH/MM3 Mean Platelet Volume 7.5 FL Neutrophils (%) (Auto) 68.2 % Lymphocytes (%) (Auto) 18.3 % Monocytes (%) (Auto) 9.9 % Eosinophils (%) (Auto) 3.2 % Basophils (%) (Auto) 0.4 % Neutrophils # (Auto) 3.3 TH/MM3 Lymphocytes # (Auto) 0.9 TH/MM3 Monocytes # (Auto) 0.5 TH/MM3 Eosinophils # (Auto) 0.2 TH/MM3 Basophils # (Auto) 0.0 TH/MM3 CBC Comment DIFF FINAL Differential Comment Imaging Last Impressions Lower Extremity Ultrasound 10/01/16 1606 Signed Impressions: Service Date/Time: Saturday, October 01, 2016 16:04 - CONCLUSION: Pseudoaneurysm arising from the left external iliac artery. Checo Sanchez MD Abdomen/Pelvis CT 10/01/16 0000 Signed Impressions: Service Date/Time: Saturday, October 01, 2016 14:37 - CONCLUSION: 1. Left-sided retroperitoneal hemorrhage appears unchanged. 2. Small circular area of extravasation at the site of previous catheterization in the region of the left common femoral artery suggesting possible pseudoaneurysm measuring 17 x 15 mm. 3. Bilateral renal cysts, minimal ascites, bilateral pleural effusions and bibasilar densities and diverticulosis of the colon. 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 cont FeSO4 resume plavix in 1 week per vascular FU with vascular in 1 week FU with me in 2 weeks cont asa BMP and CBC in 1 week start enalapril 5 mg daily. hold HCTZ restart simvastatin 20 mg daily Nirav Medrano MD Oct 05, 2016 08:06
[2016-10-05] MEDS: ASPIRIN 81 MG CHEW TAB PO SCH (08:33)
[2016-10-05] MEDS ORDERED: ENALAPRIL MALEATE 5 MG TAB PO SCH (09:00)
--- NOTE | 2016-10-05 09:20 | HHI.PR ---
Subjective Remarks eager for d/c no sob. no dizziness Objective Vitals heart reg lung cta abd s/nt ext no edema Vital Signs Date Time Temp Pulse Resp B/P Pulse Ox O2 Delivery O2 Flow Rate FiO2 10/05/16 07:01 60 10/05/16 06:00 62 10/05/16 05:00 68 10/05/16 04:00 62 10/05/16 03:00 97.8 72 20 150/73 99 10/05/16 03:00 62 10/05/16 02:00 73 10/05/16 01:00 64 10/05/16 00:00 64 10/04/16 23:00 70 10/04/16 23:00 98.6 79 18 137/66 97 10/04/16 22:00 66 10/04/16 21:00 70 10/04/16 20:00 70 10/04/16 19:00 70 10/04/16 19:00 98.6 70 20 129/68 98 10/04/16 18:00 81 10/04/16 17:00 94 10/04/16 16:00 68 10/04/16 15:00 98.0 68 17 150/81 100 10/04/16 15:00 89 10/04/16 14:00 65 10/04/16 13:00 74 10/04/16 12:00 66 10/04/16 11:00 97.7 79 20 150/78 100 10/04/16 11:00 62 10/04/16 10:00 69 10/04/16 10/04/16 10/05/16 14:59 22:59 06:59 Intake Total 720 ml 480 ml Output Total 150 ml Balance 720 ml 330 ml Intake Oral 720 ml 480 ml Output Urine Total 150 ml # Voids 5 2 # Bowel Movements 1 Result Diagram: 10/05/16 0550 10/04/16 0500 A/P Problem List: (1) PAD (peripheral artery disease) Status: Acute Plan: Pt has severe PAD s/p Bilateral lower extremity peripheral angiography Orbital rotational atherectomy and balloon angioplasty with drug-coated balloon in the left superficial femoral artery. Orbital rotational atherectomy and balloon angioplasty with drug-coated balloon of the right superficial femoral artery. Percutaneous transluminal angioplasty of the right anterior tibial artery. 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 h/h stable d/c with cardiology and vascular f/u coumadin on hold and awaiting vascular to ok plavix upon f/u.. currently on asa. (2) Pseudoaneurysm of left femoral artery Status: Acute Plan: see above (3) Retroperitoneal bleeding Status: Acute Plan: see above (4) Atrial fibrillation Status: Chronic (5) Hyperlipemia Status: Chronic (6) Hypertension Status: Chronic (7) CKD (chronic kidney disease), stage III Status: Chronic John Jones MD Oct 05, 2016 09:20
[2016-10-05] MEDS ORDERED: ASPI81CH25 PO (09:22)
[2016-10-05] MEDS ORDERED: FERR325T20 PO (09:23)
--- NOTE | 2016-10-05 09:23 | HHI.DCPOC ---
Discharge Care Plan Diagnosis: (1) Retroperitoneal bleeding (2) Pseudoaneurysm of left femoral artery (3) Acute blood loss anemia (4) CKD (chronic kidney disease), stage III (5) Hypertension (6) Atrial fibrillation (7) PAD (peripheral artery disease) (8) GERD (gastroesophageal reflux disease) Goals to Promote Your Health * To prevent worsening of your condition and complications * To maintain your health at the optimal level Directions to Meet Your Goals Take your medications as prescribed Follow your dietary instruction Follow activity as directed Keep your appointments as scheduled Take your immunizations and boosters as scheduled If your symptoms worsen call your PCP, if no PCP go to Urgent Care Center or Emergency Room Smoking is Dangerous to Your Health. Avoid second hand smoke Call the 24-hour hour crisis hotline for domestic abuse at John Jones MD Oct 05, 2016 09:23
[2016-10-05] MEDS: FERROUS SULFATE 325 MG (65 MG ELEMENTAL IRON) TAB PO SCH (12:00)
== END 2016-10-05 14:34 | disposition home or self-care (01) | DRG 270 ==
LOC: HDOC 08:37 → HDIC 08:38 → HCIS 15:30 → HCVR 10-01 03:35 → HDOC 10-01 04:25 → HCIS 10-03 16:25
PROVIDERS: ADMIT Hospitalist; ATTEND Hospitalist
PROC: 047L3Z1 Dilation of Left Femoral Artery using Drug-Coated Balloon, Percutaneous Approach (ICD-10-PCS; 2016-09-30)
PROC: 047K3Z1 Dilation of Right Femoral Artery using Drug-Coated Balloon, Percutaneous Approach (ICD-10-PCS; 2016-09-30)
PROC: 047P3ZZ Dilation of Right Anterior Tibial Artery, Percutaneous Approach (ICD-10-PCS; 2016-09-30)
PROC: B41D1ZZ Fluoroscopy of Aorta and Bilateral Lower Extremity Arteries using Low Osmolar Contrast (ICD-10-PCS; 2016-09-30)
PROC: 04CL3ZZ Extirpation of Matter from Left Femoral Artery, Percutaneous Approach (ICD-10-PCS; principal; 2016-09-30 13:30)
PROC: 04CK3ZZ Extirpation of Matter from Right Femoral Artery, Percutaneous Approach (ICD-10-PCS; 2016-09-30 13:30)
PROC: 04QL0ZZ Repair Left Femoral Artery, Open Approach (ICD-10-PCS; 2016-10-01)
PROC: 04UL0KZ Supplement Left Femoral Artery with Nonautologous Tissue Substitute, Open Approach (ICD-10-PCS; 2016-10-01)
PROC: 0Y980ZZ Drainage of Left Femoral Region, Open Approach (ICD-10-PCS; 2016-10-01)
PROC: 0T9B70Z Drainage of Bladder with Drainage Device, Via Natural or Artificial Opening (ICD-10-PCS; 2016-10-01)
PROC: 30233N1 Transfusion of Nonautologous Red Blood Cells into Peripheral Vein, Percutaneous Approach (ICD-10-PCS; 2016-10-01)
DX: I70.203 Unspecified atherosclerosis of native arteries of extremities, bilateral legs (principal); R57.1 Hypovolemic shock; I97.618 Postprocedural hemorrhage of a circulatory system organ or structure following other circulatory system procedure; D62 Acute posthemorrhagic anemia; I70.0 Atherosclerosis of aorta; Y83.8 Other surgical procedures as the cause of abnormal reaction of the patient, or of later complication, without mention of misadventure at the time of the procedure; Y71.1 Therapeutic (nonsurgical) and rehabilitative cardiovascular devices associated with adverse incidents; Y92.239 Unspecified place in hospital as the place of occurrence of the external cause; I72.4 Aneurysm of artery of lower extremity; I48.91 Unspecified atrial fibrillation; E78.5 Hyperlipidemia, unspecified; N18.3 Chronic kidney disease, stage 3 (moderate); I12.9 Hypertensive chronic kidney disease with stage 1 through stage 4 chronic kidney disease, or unspecified chronic kidney disease; K21.9 Gastro-esophageal reflux disease without esophagitis; Z96.641 Presence of right artificial hip joint; R31.9 Hematuria, unspecified; R58 Hemorrhage, not elsewhere classified
CPT/HCPCS: 36430; 37225; 37228; 74174; 74176; 75716; 76937; 80048; 80053; 81001; 82948; 85014; 85018; 85025; 85027; 85384; 85610; 85730; 86850; 86900; 86901; 86920; 87086; 93926; 94150; C1714; C1725; C1751; C1768; C1769; C1893; C2623; C9113; J0171; J0461; J1644; J2250; J2270; J2370; J2405; J2710; J2720; J3010; J3370; J7030; J7050; J7120; P9016; Q9967

== ENCOUNTER 2017-02-10 06:28 | Day surgery (SDC) | payer MEDICARE ==
[~2017-02-10] VITALS: Ht 180.3 cm; Wt 84.2 kg
[~2017-02-10 06:28] MED LIST changes: +ASPI81CH25 PO; +ENAL10TA PO; -ENAL10TA7 PO; +FERR325T20 PO; -HYDR-2768 PO; -HYDR-3580 PO; +HYDR200T3 PO; -K-TA10TA5 PO; -OMEP20CA5 PO; +OMEP20TA93 PO; -WARF3TAB PO; -WARF6 PO; -Z.0.COMMODE-3:1; -Z.0.WALKERFRONT
[2017-02-10] MEDS ORDERED: IOHEXOL 350 MG/ML 50 ML BTL (for Cath Lab) OTHER ONE (06:29)
[2017-02-10] MEDS ORDERED: IOHEXOL 350 MG/ML 100 ML BTL (for Cath Lab) OTHER ONE (06:29)
[2017-02-10] MEDS ORDERED: SODIUM CHLOR 0.9% 1000 ML INJ 1,000 ML IV SCH (07:15)
[2017-02-10 07:56] VITALS: BP 163/80; PULSE 60; RESP 17; TEMP 97.8; O2SAT 99
[2017-02-10] MEDS ORDERED: HYDR25TA5 PO (08:04)
[2017-02-10] MEDS ORDERED: ECASA81 PO (08:04)
[2017-02-10] MEDS ORDERED: VITA100T65 PO (08:04)
[2017-02-10] MEDS ORDERED: POTA10CA PO (08:04)
[2017-02-10] MEDS ORDERED: LISI-519 PO (08:04)
[2017-02-10] MEDS ORDERED: CLOP75TA PO (08:04)
[2017-02-10] MEDS ORDERED: HEPARIN-NS/PF INJ 1,000 ML ONE (08:28)
[2017-02-10] MEDS ORDERED: HEPARIN SODIUM - IV 10,000 UNITS/10 ML VIAL ONE (08:33)
[2017-02-10] MEDS ORDERED: MIDAZOLAM HCL 5 MG/5 ML VIAL ONE (08:33)
[2017-02-10 09:00] VITALS: PULSE 60
[2017-02-10] MEDS ORDERED: NITROGLYCERIN-D5W 50 MG/250 ML 250 ML ONE (09:00)
[2017-02-10] MEDS ORDERED: VERAPAMIL HCL 5 MG/2 ML VIAL ONE (09:19)
[2017-02-10] MEDS ORDERED: ADENOSINE IV SOLN 3 MG/ML 2 ML VIAL ONE (09:26)
[2017-02-10] MEDS ORDERED: HEPARIN-NS/PF INJ 500 ML ONE (09:34)
[2017-02-10] MEDS ORDERED: ONDANSETRON HCL 4 MG/2 ML VIAL IV PUSH PRN (10:00)
[2017-02-10] MEDS ORDERED: LIDOCAINE 2% JELLY 30 ML TUBE TOP PRN (10:00)
[2017-02-10] MEDS ORDERED: MISC INFORMATION XX ONE (10:00)
[2017-02-10] MEDS ORDERED: MORPHINE SULFATE 4 MG/ML INJ IV PUSH PRN (10:00)
[2017-02-10] MEDS ORDERED: METOCLOPRAMIDE HCL 10 MG/2 ML VIAL IV PUSH PRN (10:00)
[2017-02-10] MEDS ORDERED: ATROPINE SULFATE 1 MG/ML VIAL IV PUSH PRN (10:00)
[2017-02-10] MEDS ORDERED: LIDOCAINE HCL 1% 50 ML VIAL INFIL PRN (10:00)
[2017-02-10] MEDS ORDERED: SODIUM CHLOR 0.9% 250 ML INJ 250 ML IV PRN (10:00)
[2017-02-10] MEDS ORDERED: oxyCODONE/ACETAMINOPHEN 5 MG/325 MG TAB PO PRN (10:00)
[2017-02-10] MEDS ORDERED: LORazepam 2 MG/ML VIAL IV PUSH PRN (10:00)
[2017-02-10] MEDS ORDERED: ACETAMINOPHEN 325 MG TAB PO PRN (10:00)
[2017-02-10] MEDS ORDERED: oxyCODONE/ACETAMINOPHEN 10 MG/325 MG TAB PO PRN (10:00)
[2017-02-10] MEDS ORDERED: BACITRACIN OINT 0.9 GM PKT TOP ONE (11:00)
--- NOTE | 2017-02-10 14:17 | MA ---
cc: BRITTNI MCCULLOUGH MD DATE: 02/10/2017 Peripheral intervention. PROCEDURES PERFORMED 1. Fluoroscopy interpretation 2. Left lower extremity peripheral angiography with first, second, third order visualization interpretation. 3. Orbital rotational atherectomy and balloon angioplasty drug coated balloon of the left superficial femoral artery. 4. Balloon angioplasty of the left peroneal artery. BRIEF HISTORY This gentleman who had prior right peripheral intervention of the lower extremity. He has left lower extremity residual claudication and known severe disease. He is brought in for elective attempted revascularization. His method; rate and alternatives us with the patient. The patient understood and consented. PROCEDURE The patient brought catheterization lab. The catheterization table. Right groin was prepped and draped in sterile fashion. Right groin was anesthetized 2% lidocaine. Right common femoral was cannulated 5-Gibraltarian 11 cm sheath was placed out difficulty. His left lower extremity peripheral angiography The left common iliac artery proximally has a small to moderate-sized saccular and into the aneurysm present. This was previously discussed with Dr. Gaona vascular surgery recommended to a routine surveillance. Remainder left common iliac artery has minor irregularities. Left internal and external iliac arteries have minor irregularities. Left common femoral artery has a minor irregularities. Left profunda is widely patent left superficial femoral he has a 90% discrete stenosis and 60-70% stenosis since diffuse in nature of the mid to distal segment of popliteal artery has minor irregularities. There is severe disease in the left infrapopliteal distribution. Left anterior tibial, posterior tibial artery is occluded left anterior tibialis well collateralized via the peroneal posterior tibial trunk has an 80% tubular stenosis present. Peripheral intervention; given the abnormal non-invasive imaging studies, residual symptoms, we elected to proceed with attempted revascularization. Careful attention was paid to the single-vessel runoff. 0.035 inch 260 cm stiff angle Glidewire was navigated down the proximal left superficial femoral artery 6-Gibraltarian 45 cm true well destination pinnacle sheath was advanced up-and-over the arch into the left superficial femoral artery. A 0.035 inch Glidewire was then navigated across the superficial femoral artery down to the distal popliteal, 0.035 inches 135 cm trailblazer catheter was then advanced behind it wire was removed. A 0.[address] inches [address] wire was then carefully navigated down the distal peroneal vessel 0.014 inch, 150 cm trailblazer catheter was then navigated carefully distal peroneal vessel wire was removed. Heparin was administered throughout the entire procedure to maintain appropriate coagulation. A digital subtraction angiography did confirm intraluminal placement. A 4.0 x 40 mm Medtronic balloon was then gently deployed to 6 atmospheres in the posterior tibial peroneal trunk. Repeat angiography showed JH-III flow there was a non-flow limiting dissection flap. Attention was then directed towards the left superficial femoral artery, a prophylactic adenosine and nitroglycerin were both given prior to atherectomy to avoid no reflow phenomenon. 1.5 mm CSI atherectomy catheter was then prepped and advanced into the left superficial femoral artery. Two passes at 60,000 revolutions per minute, one pass a 120,000 revolutions per minute was performed within the left superficial femoral artery. A 6.0 x 150 mm Medtronic drug coated balloon was then deployed in the left superficial femoral artery for three minutes. Repeat angiography showed JH-III flow to small non-flow limiting dissection flaps but good angiographic result. The wire was then removed. Sheath was pulled back in exchanged for a 6-Gibraltarian short sheath sewn into place to be removed with manual hemostasis. The right common femoral artery location. Flouroscopy in angiography was utilized to ensure appropriate positioning of the right common femoral sheath in the mid common femoral artery. CONCLUSION 1. Severe left superficial femoral infrapopliteal disease. 2. Successful rotational atherectomy, and balloon angioplasty drug coated balloon of the left superficial femoral artery. 3. Successful balloon angioplasty left peroneal artery. PLAN Hopefully this translate well symptomatic improvement. He will continue on Plavix, statin, aspirin therapy, we will monitor him closely for any post procedural complications. Anticipate he does well, he should be able to go home later today. MD JULITO Lomeli/nai /10:05 AM /12:35 PM
== END 2017-02-10 19:00 | disposition home or self-care (01) ==
LOC: HDOC 06:28 → HDIC 06:28 → HDOC 19:00
PROVIDERS: ATTEND Internal Medicine
DX: I70.212 Atherosclerosis of native arteries of extremities with intermittent claudication, left leg (principal); I48.91 Unspecified atrial fibrillation; I10 Essential (primary) hypertension; Z79.02 Long term (current) use of antithrombotics/antiplatelets; Z79.82 Long term (current) use of aspirin; Z87.891 Personal history of nicotine dependence
CPT/HCPCS: 37225; 37228; 75710; 85002; 85347; 86850; 86900; 86901; 99152; 99153; C1714; C1725; C1751; C1769; C1893; C2623; J0153; J1644; J2250; J3010; Q9967